=== PATIENT | female | born 1935 | race African-American/Black ===

== ENCOUNTER 2018-07-10 13:29 | Emergency (ER) | payer OTHER ==
--- NOTE | 2018-07-10 14:50 | RAD REPORT ---
EXAM DESCRIPTION: RAD - Chest Single View - 07/10/2018 2:37 pm CLINICAL HISTORY: CONGESTION Chest pain. COMPARISON: Chest Single View dated 10/19/2016; CHEST SINGLE VIEW dated 11/25/2012; CHEST PA AND LAT 2 VIEW dated 03/19/2011; CHEST PA AND LAT 2 VIEW dated 07/24/2005 FINDINGS: Portable technique limits examination quality. Mild COPD is noted. Chronic elevation of left hemidiaphragm is noted, unchanged. Mild mass effect on the the cardiomediastinal structures to the right is again seen. The heart is normal in size. No disp laced fractures. IMPRESSION: No acute intrathoracic process suspected.
[2018-07-10 15:18] LABS: Absolute Lymphocytes (CBC) 1.1 K/uL (0.7-4.9); Absolute Monocytes 0.8 K/uL (0.1-1.3); Absolute Neutrophil 3.3 K/uL (1.8-8.0); Basophils % 0.3 % (0-1.3); Eosinophils % 3.2 % (0-4.4); Hematocrit 39.4 % (36.0-45.0); Lymphocytes % 20.5 % (15.3-44.8); Monocytes % 14.4 % (3.3-12.3); RBC Red Blood Cell Count 4.39 M/uL (3.86-4.86)
[2018-07-10] MEDS ORDERED: AZITHROMYCIN 250 MG TAB ONE (15:21)
[2018-07-10] MEDS ORDERED: NA CHLORIDE 0.9% 1,000 ML ONE (15:22)
[2018-07-10] MEDS ORDERED: CEFTRIAXONE/SWI 1gm 1 GM/10 ML SYR ONE (15:22)
[2018-07-10] MEDS ORDERED: KETOROLAC 30 MG/ML INJ ONE (15:22)
[2018-07-10 15:36] LABS: BUN Blood Urea Nitrogen 7 mg/dL (7-18); Bicarbonate 34 mmol/L (21-32); Glucose Level 119 mg/dL (74-106); NT PRO-BNP 141 pg/mL (<450); Potassium 3.9 mmol/L (3.5-5.1); Sodium Level 138 mmol/L (136-145); Troponin (Emerg Dept Use Only) < 0.02 ng/mL (0.0-0.045)
--- NOTE | 2018-07-10 16:04 | EDPHYS ---
Physician Documentation [facility] Name: Patito Bell Age: 82 yrs Sex: Female : 1935 Arrival Date: 07/10/2018 Time: 13:31 Bed 16 Private MD: Maldonado Childress V ED Physician Ashleigh Iglesias HPI: 07/10 14:02 This 82 yrs old Black Female presents to ER via Wheelchair with complaints of Passed ma2 Out Prior To Arrival. 14:02 here with cough sob x 1 day intermittent moderate has had this before, had episode of ma2 lightheadedness with the cough however no chest pain or hx of dvt . Historical: - Allergies: 13:45 NKA; sv - PMHx: 13:45 Hyperlipidemia; Hypertension; RLE DVT; sv - PSHx: 13:45 Hysterectomy; Thyroidectomy; right knee; sv - Immunization history:: Adult Immunizations up to date. - Social history:: Patient/guardian denies using alcohol, street drugs, The patient lives with family, with spouse, Smoking status: Patient/guardian denies using tobacco. - Family history:: not pertinent. - Ebola Screening: : Patient denies travel to an Ebola-affected area in the 21 days before illness onset. ROS: 14:02 Constitutional: Negative for fever, chills, and weight loss, Cardiovascular: Negative ma2 for chest pain, palpitations, and edema, Abdomen/GI: Negative for abdominal pain, nausea, diarrhea, and constipation, Back: Negative for injury and pain. 14:02 Respiratory: Positive for cough, Negative for dyspnea on exertion, orthopnea, shortness of breath, wheezing. Exam: 14:02 Constitutional: This is a well developed, well nourished patient who is awake, alert, ma2 and in no acute distress. Head/Face: Normocephalic, atraumatic. Chest/axilla: Normal chest wall appearance and motion. Nontender with no deformity. No lesions are appreciated. Cardiovascular: Regular rate and rhythm with a normal S1 and S2. No gallops, murmurs, or rubs. Normal PMI, no JVD. No pulse deficits. Respiratory: Lungs have equal breath sounds bilaterally, clear to auscultation and percussion. No rales, rhonchi or wheezes noted. No increased work of breathing, no retractions or nasal flaring. Abdomen/GI: Soft, non-tender, with normal bowel sounds. No distension or tympany. No guarding or rebound. No evidence of tenderness throughout. MS/ Extremity: Pulses equal, no cyanosis. Neurovascular intact. Full, normal range of motion. Neuro: Awake and alert, GCS 15, oriented to person, place, time, and situation. Cranial nerves II-XII grossly intact. Motor strength 5/5 in all extremities. Sensory grossly intact. Cerebellar exam normal. Normal gait. Vital Signs: 13:45 BP 101 / 69; Pulse 57; Resp 16; Temp 97.7; Pulse Ox 99% ; Weight 47.63 kg; Height 5 ft. sv 0 in. (152.40 cm); Pain 4/10; 14:53 BP 106 / 72; Pulse 55; Resp 15; Pulse Ox 100% on R/A; aj1 15:21 BP 99 / 55; Pulse 58; Resp 14; Pulse Ox 98% on R/A; aj1 16:11 BP 101 / 54; Pulse 62; Resp 16; Pulse Ox 99% on R/A; aj1 13:45 Body Mass Index 20.51 (47.63 kg, 152.40 cm) sv MDM: 14:00 Patient medically screened. ma2 14:02 Differential Diagnosis: vasovagal episode, cap vs bronchitis, ekg done and no ischemic ma2 changed no long qt or signs of hocm or brugada, or right heart strain . 15:12 Differential Diagnosis: low risk syncope per [place] . ma2 16:03 Data reviewed: vital signs, nurses notes, lab test result(s), radiologic studies. ma2 Counseling: I had a detailed discussion with the patient and/or guardian regarding: the historical points, exam findings, and any diagnostic results supporting the discharge/admit diagnosis, the presence of at least one elevated blood pressure reading (>120/80) during this emergency department visit. Response to treatment: the patient's symptoms have markedly improved after treatment. 07/10 14:02 Order name: BMP [facility] 07/10 14:02 Order name: CBC with Diff [facility] 07/10 14:02 Order name: Troponin (emerg Dept Use Only) [facility] 07/10 14:02 Order name: D-Dimer nj07/10 14:02 Order name: BNP [facility] 07/10 14:02 Order name: Influenza Screen (a \T\ B) [facility] 07/10 14:02 Order name: XRAY CXR (1 view) [facility] 07/10 14:52 Order name: RAD; Complete Time: 15:11 [facility] 07/10 15:29 Order name: CBC with Automated Diff; Complete Time: 15:31 EDMS 07/10 15:29 Order name: D-Dimer; Complete Time: 15:31 [facility] 07/10 15:36 Order name: Basic Metabolic Panel; Complete Time: 15:59 EDMS 07/10 15:36 Order name: Troponin (Emerg Dept Use Only); Complete Time: 15:59 EDMS 07/10 15:36 Order name: NT PRO-BNP; Complete Time: 15:59 [facility] 07/10 16:04 Order name: Influenza Screen (A 07/10 13:46 Order name: EKG; Complete Time: 13:46 sv 07/10 13:46 Order name: EKG - Nurse/Tech; Complete Time: 13:57 sv 07/10 14:02 Order name: Cardiac monitoring; Complete Time: 14:49 [facility] 07/10 14:02 Order name: IV Saline Lock; Complete Time: 15:20 [facility] 07/10 14:02 Order name: Labs collected and sent; Complete Time: 15:20 [facility] 07/10 14:02 Order name: O2 Per Protocol; Complete Time: 14:50 [facility] 07/10 14:02 Order name: O2 Sat Monitoring; Complete Time: 14:50 [facility] Administered Medications: 15:19 Drug: NS 0.9% 1000 ml Route: IV; Rate: 1 bolus; Site: right antecubital; aj1 16:15 Follow up: IV Status: Completed infusion; IV Intake: 1000ml aj1 15:19 Drug: TORadol 30 mg Route: IVP; Site: right antecubital; aj1 16:15 Follow up: Response: No adverse reaction aj1 16:15 Follow up: Response: No adverse reaction aj1 15:20 Drug: Rocephin 1 grams Route: IV; Rate: calculated rate; Site: right antecubital; aj1 15:22 Follow up: IV Status: Completed infusion; IV Intake: 10ml aj1 15:20 Drug: AZITHromycin 500 mg Route: PO; aj1 16:15 Follow up: Response: No adverse reaction aj1 Disposition: 07/10/18 16:03 Discharged to Home. Impression: Bronchitis, not specified as acute or chronic. - Condition is Stable. - Discharge Instructions: Acute Bronchitis, Adult. - Prescriptions for Tylenol- Codeine #3 300-30 mg Oral Tablet - take 2 tablet by ORAL route every 6 hours As needed; 30 tablet. Zithromax Z- Jun 250 mg Oral Tablet - take 1 tablet by ORAL route as directed for 5 days Day 1 - take two (2) tablets one time. Day 2, 3, 4 , 5 take one (1) tablet once daily.; 6 tablet. Medrol (Jun) 4 mg Oral Tablets, Dose Pack - take 1 tablet by ORAL route as directed - follow package instructions; 1 packet. - Medication Reconciliation Form, Thank You Letter, Antibiotic Education, Prescription Opioid Use form. - Follow up: Private Physician; When: Tomorrow; Reason: Continuance of care. Signatures: Dispatcher [employer] EDIdalmis Reddy RN RN aj1 Sandra Ballard RN RN Ashleigh Iglesias MD MD ma2 Corrections: (The following items were deleted from the chart) 16:28 16:03 07/10/2018 16:03 Discharged to Home. Impression: Bronchitis, not specified as aj1 acute or chronic. Condition is Stable. Forms are Medication Reconciliation Form, Thank You Letter, Antibiotic Education, Prescription Opioid Use. Follow up: Private Physician; When: Tomorrow; Reason: Continuance of care. ma2
--- NOTE | 2018-07-10 16:04 | ER ---
Nurse's Notes [facility] Name: Patito Bell Age: 82 yrs Sex: Female : 1935 Arrival Date: 07/10/2018 Time: 13:31 Bed 16 Private MD: Maldonado Childress V Diagnosis: Bronchitis, not specified as acute or chronic Presentation: 07/10 13:40 Presenting complaint: Patient states: abd pain, dizziness, diarrhea, back pain, sv syncopal episode while on the toilet. Son reports when he came to get her she was sitting on her bed. Transition of care: patient was not received from another setting of care. Onset of symptoms was July 10, 2018. Care prior to arrival: None. 13:40 Method Of Arrival: Wheelchair sv 13:40 Acuity: GLENNA 3 sv 16:24 Risk Assessment: Do you want to hurt yourself or someone else? Patient reports no aj1 desire to harm self or others. 16:25 Initial Sepsis Screen: Does the patient meet any 2 criteria? No. Patient's initial aj1 sepsis screen is negative. Does the patient have a suspected source of infection? Yes: Productive cough/pneumonia. Triage Assessment: 13:46 General: Appears in no apparent distress. uncomfortable, Behavior is calm, cooperative, sv appropriate for age. Neuro: Level of Consciousness is awake, alert, obeys commands, Oriented to person, place, time, situation, Moves all extremities. Full function Gait is steady, Reports a syncopal episode. Respiratory: Respiratory effort is even, unlabored, Respiratory pattern is regular, symmetrical. Historical: - Allergies: 13:45 NKA; sv - PMHx: 13:45 Hyperlipidemia; Hypertension; RLE DVT; sv - PSHx: 13:45 Hysterectomy; Thyroidectomy; right knee; sv - Immunization history:: Adult Immunizations up to date. - Social history:: Patient/guardian denies using alcohol, street drugs, The patient lives with family, with spouse, Smoking status: Patient/guardian denies using tobacco. - Family history:: not pertinent. - Ebola Screening: : Patient denies travel to an Ebola-affected area in the 21 days before illness onset. Screenin:00 Abuse screen: Denies threats or abuse. Denies injuries from another. Nutritional aj1 screening: No deficits noted. Tuberculosis screening: No symptoms or risk factors identified. 16:25 Fall Risk None identified. aj1 Assessment: 14:00 General: Appears in no apparent distress. comfortable, Behavior is calm, cooperative, aj1 appropriate for age. Pain: Complains of pain in back and abdomen Pain does not radiate. Pain currently is 4 out of 10 on a pain scale. Neuro: Level of Consciousness is awake, alert, obeys commands, Oriented to person, place, time, situation, Bag Valver are equal bilaterally Moves all extremities. Full function Speech is normal, Facial symmetry appears normal, Reports dizziness, a syncopal episode. Cardiovascular: Patient's skin is warm and dry. Rhythm is sinus bradycardia. Respiratory: Reports shortness of breath cough that is persistent Airway is patent Respiratory effort is even, unlabored, Respiratory pattern is regular, symmetrical. GI: Abdomen is flat, non-distended, Reports diarrhea. : No signs and/or symptoms were reported regarding the genitourinary system. EENT: No signs and/or symptoms were reported regarding the EENT system. Derm: No signs and/or symptoms reported regarding the dermatologic system. Skin is pink, warm \T\ dry. normal. Musculoskeletal: No signs and/or symptoms reported regarding the musculoskeletal system. Circulation, motion, and sensation intact. 14:54 Reassessment: Patient appears in no apparent distress at this time. No changes from aj1 previously documented assessment. Patient and/or family updated on plan of care and expected duration. Pain level reassessed. Patient is alert, oriented x 3, equal unlabored respirations, skin warm/dry/pink. 15:20 Reassessment: Patient appears in no apparent distress at this time. No changes from aj1 previously documented assessment. Patient and/or family updated on plan of care and expected duration. Pain level reassessed. Patient is alert, oriented x 3, equal unlabored respirations, skin warm/dry/pink. 16:11 Reassessment: Patient appears in no apparent distress at this time. No changes from aj1 previously documented assessment. Patient and/or family updated on plan of care and expected duration. Pain level reassessed. Patient is alert, oriented x 3, equal unlabored respirations, skin warm/dry/pink. Vital Signs: 13:45 BP 101 / 69; Pulse 57; Resp 16; Temp 97.7; Pulse Ox 99% ; Weight 47.63 kg; Height 5 ft. sv 0 in. (152.40 cm); Pain 4/10; 14:53 BP 106 / 72; Pulse 55; Resp 15; Pulse Ox 100% on R/A; aj1 15:21 BP 99 / 55; Pulse 58; Resp 14; Pulse Ox 98% on R/A; aj1 16:11 BP 101 / 54; Pulse 62; Resp 16; Pulse Ox 99% on R/A; aj1 13:45 Body Mass Index 20.51 (47.63 kg, 152.40 cm) sv ED Course: 13:31 Patient arrived in ED. as 13:31 Maldonado Childress MD is Private Physician. as 13:44 Triage completed. sv 13:46 Arm band placed on. sv 13:54 EKG done, by analytical lab technician. reviewed by Ashleigh Iglesias MD. sm3 13:55 Idalmis Kimble, BRANNON is Primary Nurse. aj1 14:00 Ashleigh Iglesias MD is Attending Physician. ma2 14:00 Patient has correct armband on for positive identification. Bed in low position. Call aj1 light in reach. Side rails up X 1. cardiac monitor on. Pulse ox on. NIBP on. 14:00 No provider procedures requiring assistance completed. aj1 14:35 Missed attempt(s): 22 gauge in left antecubital area. Bleeding controlled, band aid aj1 applied, catheter tip intact. 14:40 Missed attempt(s): 22 gauge in left hand. Bleeding controlled, band aid applied, aj1 catheter tip intact. 16:24 IV discontinued, intact, bleeding controlled, No redness/swelling at site. Pressure aj1 dressing applied. Administered Medications: 15:19 Drug: NS 0.9% 1000 ml Route: IV; Rate: 1 bolus; Site: right antecubital; aj1 16:15 Follow up: IV Status: Completed infusion; IV Intake: 1000ml aj1 15:19 Drug: TORadol 30 mg Route: IVP; Site: right antecubital; aj1 16:15 Follow up: Response: No adverse reaction aj1 16:15 Follow up: Response: No adverse reaction aj1 15:20 Drug: Rocephin 1 grams Route: IV; Rate: calculated rate; Site: right antecubital; aj1 15:22 Follow up: IV Status: Completed infusion; IV Intake: 10ml [facility] 15:20 Drug: AZITHromycin 500 mg Route: PO; 1 16:15 Follow up: Response: No adverse reaction aj1 Intake: 15:22 IV: 10ml; Total: 10ml. aj1 16:15 IV: 1000ml; Total: 1010ml. aj1 Outcome: 16:03 Discharge ordered by . ma2 16:25 Discharged to home via wheelchair, with family. aj1 16:25 Condition: good 16:25 Discharge instructions given to patient, family, Instructed on discharge instructions, follow up and referral plans. no drinking with medication, no driving heavy equipment, medication usage, Demonstrated understanding of instructions, follow-up care, medications, Prescriptions given X 3. 16:28 Patient left the ED. [facility] Signatures: Idalmis Kimble RN RN aj1 Verde, Stephanie, RN RN sv Martinez, Amelia as Alzahri, Mohammad, MD MD ma2 Evangelina Novak 3 Corrections: (The following items were deleted from the chart) 13:46 13:40 Presenting complaint: Patient states: abd pain, dizziness, diarrhea, back pain, sv syncopal episode while on the toilet. sv
[2018-07-10 16:35] VITALS: TEMP 97.7
[2018-07-10 16:39] VITALS: BP 101/54; O2SAT 99
--- NOTE | 2018-07-10 21:21 | EKG ---
Test Date: 2018-07-10 Test Time: 13:45:51 Certified Athletic Trainer: REBEKAH MEASUREMENT RESULTS: Intervals: Rate: 58 WV: 166 QRSD: 78 QT: 478 QTc: 469 Avella: P: 66 WV: 166 QRS: 63 T: 66 INTERPRETIVE STATEMENTS: Sinus bradycardia Otherwise normal ECG Compared to ECG 10/19/2016 12:06:08 No significant changes Electronically Signed On 07-10-18 21:20:18 GLASS FURNACE TENDER by Uriel Goldsmith
== END 2018-07-10 16:28 | disposition home or self-care (01) ==
LOC: ER 13:29
DX: J40 Bronchitis, not specified as acute or chronic (principal); I10 Essential (primary) hypertension
CPT/HCPCS: 36415; 71045; 80048; 83880; 84484; 85025; 85379; 87804 ×2; 93005; 96361; 96374; 96375; 99284; J0696; J7030

== ENCOUNTER 2020-11-14 18:09 | Emergency (ER) | payer OTHER ==
[2020-11-14] MEDS ORDERED: NA CHLORIDE 0.9% 500 ML ONE (21:36)
[2020-11-14 21:45] LABS: Absolute Lymphocytes (CBC) 1.6 K/uL (0.7-4.9); Basophils % 0.5 % (0-1.3); Hematocrit 38.7 % (36.0-45.0); Lymphocytes % 24.5 % (15.3-44.8); MPV 8.8 fL (7.6-11.3); RBC Red Blood Cell Count 4.34 M/uL (3.86-4.86)
[2020-11-14 22:23] LABS: ALT/SGPT 34 U/L (12-78); AST/SGOT 24 U/L (15-37); Albumin 3.2 g/dL (3.4-5.0); Alkaline Phosphatase 43 U/L (45-117); BUN Blood Urea Nitrogen 14 mg/dL (7-18); Bicarbonate 32 mmol/L (21-32); Bilirubin Direct < 0.1 mg/dL (0-0.2); Bilirubin Total 0.4 mg/dL (0.2-1.0); Glucose Level 101 mg/dL (74-106); Lipase 250 U/L (73-393); Potassium 3.6 mmol/L (3.5-5.1); Protein, Total 6.7 g/dL (6.4-8.2); Sodium Level 143 mmol/L (136-145)
[2020-11-14] MEDS ORDERED: TRAMADOL HCL 50 MG TAB ONE (23:26)
[2020-11-15 00:11] LABS: Urine Blood Trace-intact (Negative); Urine Glucose Negative (Negative); Urine Protein Negative (Negative); Urine Specific Gravity 1.015 (1.005-1.030); Urine pH 8.5 (5.0-7.0)
--- NOTE | 2020-11-15 00:32 | EDPHYS ---
Physician Documentation [facility] Name: Patito Bell Age: 85 yrs Sex: Female : 1935 Arrival Date: 11/14/2020 Time: 18:14 Bed 3 Private MD: ED Physician Timothy Andrews HPI: 11/14 21:06 This 85 yrs old Black Female presents to ER via Wheelchair with complaints of Shoulder rn Pain, diarrhea. 21:06 The patient or guardian complains of pain, that is chronic. right shoulder. Onset: The rn symptoms/episode began/occurred "months ago". Modifying factors: the symptoms are alleviated by remaining still, The symptoms are aggravated by movement, rotation of arm. Associated signs and symptoms:. 21:07 Severity of symptoms: At their worst the symptoms were moderate, in the emergency rn department the symptoms are unchanged. The patient has experienced similar episodes in the past. The patient has been recently seen by a physician:. Reports right shoulder pain for "months", no injury, had xray by pcp last week but no results. Also reports feeling dizzy and lightheaded, generalized weakness, diarrhea, that began today. Son states has had months of shoulder pain, no injury, thinks is from using right walking cane instead of walker. Son also not sure if she is really feeling bad, took to outside of room and said she tends to exaggerate at times. . Historical: - Allergies: 19:12 NKA; jl7 - PMHx: 19:12 Hyperlipidemia; Hypertension; RLE DVT; jl7 - PSHx: 19:12 Hysterectomy; Thyroidectomy; right knee; jl7 - Immunization history:: Adult Immunizations unknown. - Social history:: Smoking status: Patient denies any tobacco usage or history of. - Family history:: not pertinent. - Hospitalizations: : No recent hospitalization is reported. ROS: 21:07 Constitutional: Negative for fever, chills, and weight loss, Eyes: Negative for injury, rn pain, redness, and discharge, ENT: Negative for injury, pain, and discharge, Neck: Negative for injury, pain, and swelling, Cardiovascular: Negative for chest pain, palpitations, and edema, Respiratory: Negative for shortness of breath, cough, wheezing, and pleuritic chest pain, Abdomen/GI: Negative for abdominal pain, nausea, vomiting, diarrhea, and constipation, Back: Negative for injury and pain, : Negative for injury, bleeding, discharge, and swelling, MS/Extremity: + right shoulder pain Skin: Negative for injury, rash, and discoloration, Neuro: Negative for headache, numbness, tingling, and seizure. Exam: 21:07 Constitutional: Thin female, no acute distress Head/Face: Normocephalic, atraumatic. rn Eyes: Periorbital areas with no swelling, redness, or edema. ENT: dry MM Cardiovascular: Regular rate and rhythm. No pulse deficits. Respiratory: No increased work of breathing, no retractions or nasal flaring. Abdomen/GI: Soft, non-tender Skin: Warm, dry MS/ Extremity: Pulses equal, no cyanosis. Neurovascular intact. + painful ROM right shoulder, no deformity Neuro: Awake and alert, GCS 15, oriented to person, place, time, and situation. Cranial nerves II-XII grossly intact. Motor strength 4/5 in all extremities. Sensory grossly intact. Vital Signs: 19:09 BP 186 / 82; Pulse 66; Resp 15; Temp 97.2; Pulse Ox 98% ; Weight 44.91 kg; Pain 10/10; jl7 21:49 BP 195 / 79; Pulse 65; Resp 16 S; Pulse Ox 98% on R/A; ad5 22:30 BP 169 / 72; Pulse 58; Resp 16; Pulse Ox 98% on R/A; jb4 23:30 BP 177 / 81; Pulse 71; Resp 16; Pulse Ox 96% on R/A; jb4 11/15 00:15 BP 175 / 90; Pulse 60; Resp 18; Pulse Ox 96% on R/A; jb4 MDM: 11/14 19:32 Patient medically screened. rn 11/15 00:31 Differential diagnosis: DJD, tendonitis. Data reviewed: vital signs, nurses notes, labor employment associate test result(s), radiologic studies, CT scan, and as a result, I will discharge patient. Counseling: I had a detailed discussion with the patient and/or guardian regarding: the historical points, exam findings, and any diagnostic results supporting the discharge/admit diagnosis, lab results, radiology results, the need for outpatient follow up, to return to the emergency department if symptoms worsen or persist or if there are any questions or concerns that arise at home. Response to treatment: the patient's symptoms have mildly improved after treatment, and as a result, I will discharge patient. Special discussion: I discussed with the patient/guardian in detail that at this point there is no indication for admission to the hospital. It is understood, however, that if the symptoms persist or worsen the patient needs to return immediately for re-evaluation. 11/14 21:06 Order name: Basic Metabolic Panel; Complete Time: 22:28 rn 11/14 21:06 Order name: CBC with Diff; Complete Time: 21:51 rn 11/14 21:06 Order name: Hepatic Function; Complete Time: 22:28 rn 11/14 21:06 Order name: Lipase; Complete Time: 22:28 rn 11/14 21:06 Order name: Urine Microscopic Only rn 11/14 21:06 Order name: XRAY Shoulder RIGHT 2 view rn 11/14 21:06 Order name: CT Abd/Pelvis - IV Contrast Only rn 11/14 22:21 Order name: SARS-COV-2 RT PCR; Complete Time: 22:28 EDMS 11/15 00:11 Order name: Urine Dipstick-Ancillary; Complete Time: 00:31 EDMS 11/14 21:06 Order name: IV Saline Lock; Complete Time: 21:45 rn 11/14 21:06 Order name: Labs collected and sent; Complete Time: 21:45 rn 11/14 21:06 Order name: Urine Dipstick-Ancillary (obtain specimen); Complete Time: 00:16 rn 11/14 21:06 Order name: EKG; Complete Time: 21:06 rn 11/14 21:06 Order name: EKG - Nurse/Tech; Complete Time: 22:12 rn Administered Medications: 11/14 21:35 Drug: NS 0.9% 500 ml Route: IV; Rate: bolus; Site: left antecubital; ad5 22:00 Follow up: Response: No adverse reaction; IV Status: Completed infusion; IV Intake: jb4 500ml 23:19 Drug: traMADol 50 mg Route: PO; ad5 11/15 00:16 Follow up: Response: No adverse reaction; Marked relief of symptoms; Pain is decreased; jb4 RASS: Alert and Calm (0) 00:45 Drug: Motrin (ibuprofen) 600 mg Route: PO; jb4 01:03 Follow up: Response: Medication administered at discharge. jb4 01:01 Drug: Rocephin (cefTRIAXone) 1 grams Route: IV; Rate: calculated rate; Site: left jb4 antecubital; 01:03 Follow up: Response: No adverse reaction; Medication administered at discharge.; IV jb4 Status: Completed infusion; IV Intake: 10ml Disposition: 11/15/20 00:32 Discharged to Home. Impression: Dizziness and giddiness, Pain in right shoulder, Osteoarthritis, unspecified site. - Condition is Stable. - Discharge Instructions: Arthritis, Dizziness, Urinary Tract Infection, Adult. - Prescriptions for cefpodoxime 100 mg Oral Tablet - take 1 tablet by ORAL route every 12 hours for 10 days take with food; 20 tablet. - Medication Reconciliation Form, Thank You Letter, Antibiotic Education, Prescription Opioid Use, Family Work Release form. - Follow up: Private Physician; When: As needed; Reason: Recheck today's complaints, Re-evaluation by your physician. - Problem is an ongoing problem. - Symptoms have improved. Signatures: Dispatcher [employer] [facility] Timothy Andrews MD MD rn Bryson, James, RN RN jb4 Moriah Rodríguez RN RN jl7 Johnson Tee ad5 Corrections: (The following items were deleted from the chart) 11/14 21:41 21:07 CORONAVIRUS+MR.LAB.BRZ ordered. [facility] 11/15 01:16 00:32 11/15/2020 00:32 Discharged to Home. Impression: Dizziness and giddiness; Pain in jb4 right shoulder; Osteoarthritis, unspecified site. Condition is Stable. Forms are Medication Reconciliation Form, Thank You Letter, Antibiotic Education, Prescription Opioid Use. Follow up: Private Physician; When: As needed; Reason: Recheck today's complaints, Re-evaluation by your physician. Problem is an ongoing problem. Symptoms have improved. rn
--- NOTE | 2020-11-15 00:32 | ER ---
Nurse's Notes [facility] Name: Patito Bell Age: 85 yrs Sex: Female : 1935 Arrival Date: 11/14/2020 Time: 18:14 Bed 3 Private MD: Diagnosis: Dizziness and giddiness;Pain in right shoulder;Osteoarthritis, unspecified site Presentation: 11/14 19:09 Chief complaint: Patient states: right shoulder pain x several months, also reports jl7 feeling dizzy since Friday, diarrhea since this morning. Coronavirus screen: Client denies travel out of the [place] in the last 14 days. At this time, the client does not indicate any symptoms associated with coronavirus-19. Ebola Screen: No symptoms or risks identified at this time. Initial Sepsis Screen: Does the patient meet any 2 criteria? No. Patient's initial sepsis screen is negative. Does the patient have a suspected source of infection? No. Patient's initial sepsis screen is negative. Risk Assessment: Do you want to hurt yourself or someone else? Patient reports no desire to harm self or others. Onset of symptoms is unknown. 19:09 Method Of Arrival: Wheelchair jl7 19:09 Acuity: GLENNA 2 jl7 Historical: - Allergies: 19:12 NKA; jl7 - PMHx: 19:12 Hyperlipidemia; Hypertension; RLE DVT; jl7 - PSHx: 19:12 Hysterectomy; Thyroidectomy; right knee; jl7 - Immunization history:: Adult Immunizations unknown. - Social history:: Smoking status: Patient denies any tobacco usage or history of. - Family history:: not pertinent. - Hospitalizations: : No recent hospitalization is reported. Screenin:48 Abuse screen: Denies threats or abuse. Denies injuries from another. Nutritional ad5 screening: No deficits noted. Tuberculosis screening: No symptoms or risk factors identified. Fall Risk None identified. Assessment: 21:45 General: Appears in no apparent distress. Behavior is calm, cooperative, appropriate ad5 for age. Pain: Complains of pain in right scapular area. Neuro: Level of Consciousness is awake, alert, obeys commands, Oriented to person, place, time, situation, Appropriate for age [employer] [employer] are equal bilaterally Moves all extremities. Weakness Speech is normal, Facial symmetry appears normal, Pupils are PERRLA, Intact Reports dizziness. Cardiovascular: No deficits noted. Heart tones present Capillary refill < 3 seconds JVD is absent Patient's skin is warm and dry. Rhythm is regular. Respiratory: Reports shortness of breath Airway is patent Trachea midline Respiratory effort is even, unlabored, Respiratory pattern is regular, symmetrical. GI: No deficits noted. No signs and/or symptoms were reported involving the gastrointestinal system. : No deficits noted. No signs and/or symptoms were reported regarding the genitourinary system. EENT: No deficits noted. No signs and/or symptoms were reported regarding the EENT system. Derm: No deficits noted. Skin is intact, Skin is dry, Skin is normal, Skin temperature is warm. Musculoskeletal: Circulation, motion, and sensation intact. Capillary refill < 3 seconds, Range of motion: intact in all extremities, Reports pain in right scapular area. 22:33 Reassessment: Patient appears in no apparent distress at this time. Patient and/or jb4 family updated on plan of care and expected duration. Pain level reassessed. Patient is alert, oriented x 3, equal unlabored respirations, skin warm/dry/pink. PT being taken to CT. 23:30 Reassessment: Patient appears in no apparent distress at this time. Patient and/or jb4 family updated on plan of care and expected duration. Pain level reassessed. Patient is alert, oriented x 3, equal unlabored respirations, skin warm/dry/pink. 11/15 00:30 Reassessment: Patient appears in no apparent distress at this time. Patient and/or jb4 family updated on plan of care and expected duration. Pain level reassessed. Patient is alert, oriented x 3, equal unlabored respirations, skin warm/dry/pink. Vital Signs: 11/14 19:09 BP 186 / 82; Pulse 66; Resp 15; Temp 97.2; Pulse Ox 98% ; Weight 44.91 kg; Pain 10/10; jl7 21:49 BP 195 / 79; Pulse 65; Resp 16 S; Pulse Ox 98% on R/A; ad5 22:30 BP 169 / 72; Pulse 58; Resp 16; Pulse Ox 98% on R/A; jb4 23:30 BP 177 / 81; Pulse 71; Resp 16; Pulse Ox 96% on R/A; jb4 11/15 00:15 BP 175 / 90; Pulse 60; Resp 18; Pulse Ox 96% on R/A; jb4 ED Course: 11/14 18:14 Patient arrived in ED. ds1 19:09 Arm band placed on right wrist. Patient placed in waiting room, Patient notified of jl7 wait time. 19:11 Triage completed. jl7 19:32 Timothy Andrews MD is Attending Physician. rn 20:56 Timothy Andrews MD is Attending Physician. rn 21:15 Johnson Tee is Primary Nurse. ad5 21:30 Initial lab(s) drawn, by me, sent to lab. COVID swab sent to lab. Inserted saline lock: ad5 22 gauge in left antecubital area, using aseptic technique. 21:42 XRAY Shoulder RIGHT 2 view In Process Unspecified. EDMS 21:47 No provider procedures requiring assistance completed. ad5 21:48 Patient has correct armband on for positive identification. Bed in low position. Call ad5 light in reach. Side rails up X2. site monitor on. Pulse ox on. NIBP on. Door closed. Noise minimized. Warm blanket given. 21:48 Head of bed lowered. ad5 22:14 Primary Nurse role handed off by Johnson Tee jb4 22:14 Jarrett Whelan, RN is Primary Nurse. jb4 22:44 Inserted saline lock: 20 gauge in right forearm, using aseptic technique. jb4 23:10 CT Abd/Pelvis - IV Contrast Only In Process Unspecified. EDMS 06/ 01:03 IV discontinued, intact, bleeding controlled, No redness/swelling at site. Pressure jb4 dressing applied. Administered Medications: 11/14 21:35 Drug: NS 0.9% 500 ml Route: IV; Rate: bolus; Site: left antecubital; ad5 22:00 Follow up: Response: No adverse reaction; IV Status: Completed infusion; IV Intake: jb4 500ml 23:19 Drug: traMADol 50 mg Route: PO; ad5 11/15 00:16 Follow up: Response: No adverse reaction; Marked relief of symptoms; Pain is decreased; jb4 RASS: Alert and Calm (0) 00:45 Drug: Motrin (ibuprofen) 600 mg Route: PO; jb4 01:03 Follow up: Response: Medication administered at discharge. jb4 01:01 Drug: Rocephin (cefTRIAXone) 1 grams Route: IV; Rate: calculated rate; Site: left jb4 antecubital; 01:03 Follow up: Response: No adverse reaction; Medication administered at discharge.; IV jb4 Status: Completed infusion; IV Intake: 10ml Intake: 11/14 22:00 IV: 500ml; Total: 500ml. jb4 06 01:03 IV: 10ml; Total: 510ml. jb4 Outcome: 00:32 Discharge ordered by . rn 01:16 Discharged to home via wheelchair, with family. jb4 01:16 Condition: stable 01:16 Discharge instructions given to patient, family, Instructed on discharge instructions, follow up and referral plans. medication usage, Demonstrated understanding of instructions, follow-up care, medications, Prescriptions given X 1. 01:16 Patient left the ED. jb4 Signatures: Dispatcher [employer] EDIL Sparkle Manzano ds1 Timothy Andrews MD MD rn Bryson, James RN BRANNON [email or web address] Moriah Rodríguez RN RN jl7 Johnson Tee Corrections: (The following items were deleted from the chart) 11/14 19:13 19:09 Chief complaint: Patient states: right shoulder pain x several monoths jl7 jl7 19:13 19:09 Acuity: GLENNA 3 jl7 jl7
[2020-11-15] MEDS ORDERED: CEFTRIAXONE/SWI 1gm 1 GM/10 ML SYR ONE (01:09)
[2020-11-15] MEDS ORDERED: IBUPROFEN 200 MG TAB PO ONE (01:09)
[2020-11-15 01:38] VITALS: TEMP 97.2
[2020-11-15 01:43] VITALS: O2SAT 96
[2020-11-15 01:45] VITALS: BP 175/90
[2020-11-15 02:04] LABS: Urine Bacteria <20 /HPF (<20); Urine RBC <5 /HPF (NONE SEEN); Urine Urothelial Cells <5 /HPF (NONE SEEN)
--- NOTE | 2020-11-15 08:27 | RAD REPORT ---
EXAM DESCRIPTION: RAD - Shoulder Right 2 View - 11/14/2020 9:42 pm CLINICAL HISTORY: PAIN COMPARISON: No comparisons FINDINGS: Mild osteoarthritis affects the AC joint and glenohumeral joint. The bones are osteopenic. No acute fracture or dislocation seen.
--- NOTE | 2020-11-15 11:20 | RAD REPORT ---
EXAM DESCRIPTION: Abdomen Pelvis W Contrast RadLex: CT ABDOMEN PELVIS WITH IV CONTRAST CLINICAL HISTORY: Diarrhea;Abd pain. COMPARISON: CT of the chest from August 12, 2016. TECHNIQUE: CT of the abdomen and pelvis was performed following intravenous administration of iodina jane contrast. Arterial phase images through the abdomen, and portal venous phase images through the a bdomen and pelvis were obtained. Oral contrast was not administered. Axial, coronal, and sagittal sof t tissue window reconstructions were created and sent to PACS. This exam was performed according to our departmental dose-optimization program, which includes autom ated exposure control, adjustment of the mA and/or kV according to patient size and/or use of iterati ve reconstruction technique. FINDINGS: Thoracic: Elevation of the left hemidiaphragm, similar to prior. Hepatobiliary: Tiny right hepatic lobe hypodensity, possibly a cyst. No concerning hepatic lesion noin ntified. The hepatic and portal veins are patent. The gallbladder is surgically absent. No pathologic biliary ductal dilatation. Pancreas: Mildly prominent main pancreatic duct, measuring just over 0.3 cm in diameter, favored age- related. No parenchymal abnormality identified. Spleen: Unremarkable. Gastrointestinal: No evidence of bowel obstruction or perienteric inflammation. The appendix is not d efinitely visualized, but there are no pericecal inflammatory changes. Small to moderate amount of fe blaise material throughout the colon. Adrenals: No abnormality identified in either adrenal gland. Renal: Bilateral renal cortical thinning. Small simple inferior right renal cyst measures 1.3 cm. No concerning parenchymal abnormality in either kidney. No hydronephrosis or urolithiasis. Bladder/Reproductive: Unremarkable appearance of the distended urinary bladder by CT technique. Vascular/Lymphatics: No lymphadenopathy identified by CT size criteria. Mild to moderate atherosclero sis. The major visceral vessels are patent. Abdominal aorta is normal in caliber. Musculoskeletal: No concerning osseous lesion identified. Osteopenia. Mild spinal degenerative change s. Fluid / peritoneum: No significant free fluid. No free intraperitoneal air identified. IMPRESSION 1. No acute abnormality identified in the abdomen or pelvis by CT. 2. Small to moderate amount of fecal material throughout the colon. Electronically signed by: Gin Mackey MD 11/14/2020 11:29 PM CDT Due to temporary technical issues with the PACS/Fluency reporting system, reports are being signed by the in house radiologist without review as a courtesy to ensure prompt reporting. The interpreting r adiologist is fully responsible for the content of the report.
--- NOTE | 2020-11-15 11:55 | EKG ---
Test Date: 2020-11-14 Test Time: 22:08:46 Plastic Press Operator: DANICA MEASUREMENT RESULTS: Intervals: Rate: 50 HI: 188 QRSD: 80 QT: 470 QTc: 428 [place]: P: 65 HI: 188 QRS: 52 T: 42 INTERPRETIVE STATEMENTS: Sinus bradycardia with sinus arrhythmia Otherwise normal ECG Compared to ECG 07/10/2018 13:45:51 No significant changes Electronically Signed On 11-15-20 11:53:39 CDT by Uriel Goldsmith
== END 2020-11-15 01:16 | disposition home or self-care (01) ==
LOC: ER 18:09
DX: M19.011 Primary osteoarthritis, right shoulder (principal); I10 Essential (primary) hypertension; Z20.822 Contact with and (suspected) exposure to COVID-19
CPT/HCPCS: 93005; 87088; 85025; 87086; 80048; 36415; 80076; 83690; 74177; 73030; U0003; Q9967; J0696; J7040; 81003; 81015; 96374; 99284

== ENCOUNTER 2022-08-13 14:17 | Emergency (ER) | payer OTHER ==
[2022-08-13] MEDS ORDERED: MORPHINE 2 MG/ML SYR ONE (14:57)
[2022-08-13] MEDS ORDERED: ONDANSETRON 4 MG/2 ML VIAL ONE (14:57)
--- NOTE | 2022-08-13 15:14 | RAD REPORT ---
EXAM DESCRIPTION: CT - Head C Spine Cap Wo Con - 08/13/2022 2:55 pm CLINICAL HISTORY: Trauma, head and neck injury. Chest, abdomen and pelvis pain. fall, head injury neck pain, right sided pelvic pain COMPARISON: No comparisons TECHNIQUE: CT head without contrast. CT cervical spine without contrast with coronal and sagittal reformatted images. CT chest, abdomen and pelvis with coronal and sagittal reformatted images of the spine. All CT scans are performed using dose optimization technique as appropriate and may include automated exposure control or mA/KV adjustment according to patient size. FINDINGS: CT HEAD WITHOUT CONTRAST: No intracranial hemorrhage, hydrocephalus or extra-axial fluid collection. No acute large vascular te rritory infarct. Chronic small vessel ischemic changes. The paranasal sinuses and mastoids are clear. The calvarium is intact. CT CERVICAL SPINE WITHOUT CONTRAST: No fracture or subluxation. The prevertebral soft tissues are normal in thickness. CT CHEST, ABDOMEN, PELVIS: Thorax: Chest Wall: No abnormal mass Lungs: No acute abnormality. Elevated left hemidiaphragm with underlying atelectasis. Pleura: No effusions or pneumothorax. Angélica/Mediastinum: No lymphadenopathy. Aorta/Pulmonary Arteries: Unremarkable Heart: Normal size. Aortic valve calcifications. Coronary artery calcifications. Abdomen/Pelvis: Liver: No acute abnormality or suspicious lesions. Biliary: Cholecystectomy. Stomach: No significant focal abnormality. Duodenum: No significant focal abnormality. Pancreas: No significant abnormality. Spleen: No significant abnormality. Adrenal: No suspicious lesions. Kidney/ureter: No hydronephrosis. No renal calculi. Too small to characterize and/or benign appearing renal lesions are noted. Retroperitoneum: No retroperitoneal adenopathy. Vascular: No aneurysm. Atherosclerosis. Bowel: No significant focal abnormality. Peritoneum: No ascites or free air. Bladder: Grossly unremarkable. Reproductive: No adnexal masses. Bones: No acute fracture. Bridging osteophytes are present in the spine. Other: n/a IMPRESSION: Negative for acute traumatic findings.
[2022-08-13 15:20] LABS: Absolute Lymphocytes (CBC) 1.1 K/uL (0.7-4.9); Hematocrit 37.6 % (36.0-45.0); MCV 88.6 fL (80-100); MPV 8.1 fL (7.6-11.3); RBC Red Blood Cell Count 4.24 M/uL (3.86-4.86)
--- NOTE | 2022-08-13 15:32 | RAD REPORT ---
EXAM DESCRIPTION: RAD - Chest Single View - 08/13/2022 3:14 pm CLINICAL HISTORY: fall COMPARISON: Chest Single View dated 07/10/2018; Chest Single View dated 10/19/2016; CHEST SINGLE VIEW d ated 11/25/2012; CHEST PA AND LAT 2 VIEW dated 03/19/2011 FINDINGS: Lines: None. Lungs: Left hemidiaphragm elevation. There is underlying atelectasis. No other acute finding identifi ed. Pleural: No significant pleural effusions or pneumothorax. Cardiac: The heart size is within normal limits. Mediastinum: Within normal limits. Bones: No acute fractures. Other: None IMPRESSION: Elevated left hemidiaphragm which is chronic. No acute process identified.
[2022-08-13 15:37] LABS: Troponin High Sensitivity 5.6 pg/mL (<58.9)
--- NOTE | 2022-08-13 16:06 | RAD REPORT ---
EXAM DESCRIPTION: RAD - Femur Right - 08/13/2022 3:50 pm CLINICAL HISTORY: fall, pain COMPARISON: No comparisons FINDINGS/IMPRESSION: No acute fracture. No malalignment. Patellar spurring. Mediolateral compartment narrowing at the knee.
[2022-08-13] MEDS ORDERED: FENTANYL CITR 100 MCG/2 ML ONE (16:19)
--- NOTE | 2022-08-13 16:58 | ER ---
Nurse's Notes [facility] Name: Patito Bell Age: 86 yrs Sex: Female : 1935 Arrival Date: 08/13/2022 Time: 14:20 Bed 4 Private MD: Diagnosis: Strain of muscle, fascia and tendon of right hip Presentation: 08/13 14:39 Chief complaint: Patient states: she fell onto her dresser, hitting her hip and her ap3 leg. patient denies LOC or hitting her head. patient complains of right hip/leg pain. Coronavirus screen: At this time, the client does not indicate any symptoms associated with coronavirus-19. Ebola Screen: No symptoms or risks identified at this time. Initial Sepsis Screen: Does the patient meet any 2 criteria? No. Patient's initial sepsis screen is negative. Does the patient have a suspected source of infection? No. Patient's initial sepsis screen is negative. Risk Assessment: Do you want to hurt yourself or someone else? Patient reports no desire to harm self or others. Onset of symptoms was August 13, 2022 at 13:40. 14:39 Method Of Arrival: Wheelchair ap3 14:39 Acuity: GLENNA 3 ap3 Triage Assessment: 14:43 General: Appears uncomfortable, Behavior is restless. Pain: Complains of pain in right ap3 leg \T\ right hip. Neuro: Level of Consciousness is awake, alert, obeys commands, Oriented to person, place, time, situation. Cardiovascular: Patient's skin is warm and dry. Respiratory: Airway is patent Respiratory effort is even, unlabored, Respiratory pattern is regular, symmetrical. Historical: - Allergies: 14:40 No Known Allergies; ap3 - Home Meds: 14:40 Unable to obtain [Active]; ap3 - PMHx: 14:40 Hyperlipidemia; Hypertension; RLE DVT; ap3 - Immunization history:: Flu vaccine is not up to date. - Social history:: Smoking status: Patient denies any tobacco usage or history of. Screenin:44 Abuse screen: Denies threats or abuse. Nutritional screening: No deficits noted. ap3 Tuberculosis screening: No symptoms or risk factors identified. 15:13 [facility] ED Fall Risk Assessment (Adult) History of falling in the last 3 months, ll1 including since admission Yes- single mechanical fall (1 pt) Impaired Gait Yes (1 pt) Mobility Assist Device Used Yes (1 pt) Score/Fall Risk Level 3 or more points = High Risk Oriented to surroundings, Maintained a safe environment, Educated pt \T\ family on fall prevention, incl call for assistance when getting out of bed, Hourly rounding (assess needs \T\ fall precautionary measures) done, Used ambulatory aids as needed (educated on \T\ assisted with), Used gait belt as appropriate Utilized family, sitter, or virtual auto washer as indicated. Assessment: 15:13 Reassessment: No changes from previously documented assessment. Patient and/or family ll1 updated on plan of care and expected duration. Pain level reassessed. Patient is alert, oriented x 3, equal unlabored respirations, skin warm/dry/pink. 16:29 Reassessment: No changes from previously documented assessment. Patient and/or family ll1 updated on plan of care and expected duration. Pain level reassessed. Patient is alert, oriented x 3, equal unlabored respirations, skin warm/dry/pink. 17:09 Reassessment: No changes from previously documented assessment. Patient and/or family ll1 updated on plan of care and expected duration. Pain level reassessed. Patient is alert, oriented x 3, equal unlabored respirations, skin warm/dry/pink. Vital Signs: 14:39 BP 141 / 68; Pulse 58; Resp 21; Temp 98.2; Pulse Ox 98% ; ap3 15:14 Pulse 65; Resp 19; ll1 17:05 BP 107 / 57; Pulse 53; Resp 18; Pulse Ox 98% ; ll1 ED Course: 14:20 Patient arrived in ED. rg4 14:24 Enmanuel Licona PA is PHCP. jmm 14:24 Timothy Andrews MD is Attending Physician. jmm 14:40 Triage completed. ap3 14:44 Arm band placed on left wrist. ap3 14:44 Patient has correct armband on for positive identification. Adult w/ patient. ap3 14:47 Dennis Marin, BRANNON is Primary Nurse. ll1 14:56 CT Traumagram (Head C Spine CAP wo con) In Process Unspecified. EDMS 15:03 Missed attempt(s): 22 gauge in right forearm. Bleeding controlled, band aid applied, ll1 catheter tip intact. 15:05 Inserted saline lock: 24 gauge in right antecubital area, using aseptic technique. ll1 Blood collected. 15:13 No provider procedures requiring assistance completed. ll1 15:15 XRAY Chest (1 view) In Process Unspecified. EDMS 15:52 Femur Right XRAY In Process Unspecified. EDMS 15:52 EKG done, by ED staff. tm3 16:57 Daniel Mullen MD is Referral Physician. [facility] 17:09 IV discontinued, intact, bleeding controlled, No redness/swelling at site. Pressure ll1 dressing applied. Administered Medications: 15:07 Drug: Zofran (Ondansetron) 4 mg Route: IVP; Site: right antecubital; ll1 19:02 Follow up: Response: No adverse reaction ll1 15:09 Drug: morphine 2 mg {Note: RASS 0, pain 8/10.} Route: IVP; Infused Over: 4 mins; Site: ll1 right antecubital; 17:08 Follow up: Response: No adverse reaction 1 16:16 Drug: fentaNYL (PF) 25 mcg Route: IVP; Site: right antecubital; vg1 19:03 Follow up: Response: No adverse reaction ll1 Medication: 15:14 VIS not applicable for this client. ll1 Outcome: 16:57 Discharge ordered by . [facility] 17:09 Patient left the ED. ll1 17:09 Discharged to home via wheelchair. ll1 17:09 Condition: stable 17:09 Discharge instructions given to patient, family, Instructed on discharge instructions, follow up and referral plans. medication usage, Demonstrated understanding of instructions, follow-up care, medications, Prescriptions given X 1. Signatures: Dispatcher [employer] EDMS Arjun Godoy tm3 Enmanuel Licona PA PA jmm Garcia, Rubi rg4 Francine Chavarria RN RN ap3 Demetria Foster RN RN vg1 Dennis Marin, BRANNON RN ll1 Corrections: (The following items were deleted from the chart) 14:43 14:40 Allergies: NKA; ap3 ap3 14:43 14:40 Home Meds: carvedilol 12.5 mg Oral tab 1 tab 2 times per day; ap3 ap3 14:43 14:40 Home Meds: citalopram 40 mg tab 1 tab once daily; ap3 ap3 14:43 14:40 Home Meds: indapamide 2.5 mg Oral tab 1 tab once daily; ap3 ap3 14: 14:40 Home Meds: losartan 100 mg Oral tab 1 tab once daily; ap3 ap3 14: 14:40 Home Meds: magnesium oxide 400 mg Oral tab daily; ap3 ap3 14: 14:40 Home Meds: potassium chloride 10 mEq Oral TbER 1 tab once daily; ap3 ap3 14 14:40 Home Meds: simvastatin 40 mg Oral tab 1 tab once daily; ap3 ap3 19:01 19:01 Reassessment: ll1 ll1
--- NOTE | 2022-08-13 16:58 | EDPHYS ---
Physician Documentation [facility] Name: Patito Bell Age: 86 yrs Sex: Female : 1935 Arrival Date: 08/13/2022 Time: 14:20 Bed 4 Private MD: ED Physician Timothy Andrews HPI: 08/13 14:43 This 86 yrs old Black Female presents to ER via Wheelchair with complaints of Fall jmm Injury. 14:43 Details of fall: The patient fell from an upright position. Onset: The symptoms/episode jmm began/occurred acutely. Is an 86-year-old female with history of hyperlipidemia and hypertension the presents emerged department with complaints of headache, neck pain and right hip pain following a fall which occurred while she was attempting to make her bed. Patient states she fell backwards hitting her head against a dresser denies any loss of consciousness. Pain is mainly to the right hip. Denies back pain. Historical: - Allergies: 14:40 No Known Allergies; ap3 - Home Meds: 14:40 Unable to obtain [Active]; ap3 - PMHx: 14:40 Hyperlipidemia; Hypertension; RLE DVT; ap3 - Immunization history:: Flu vaccine is not up to date. - Social history:: Smoking status: Patient denies any tobacco usage or history of. ROS: 14:43 Constitutional: Negative for fever, chills, and weight loss, Cardiovascular: Negative jmm for chest pain, palpitations, and edema, Respiratory: Negative for shortness of breath, cough, wheezing, and pleuritic chest pain. 14:43 MS/extremity: Positive for pain. 14:43 Neuro: Positive for headache. 14:43 All other systems are negative. Exam: 14:43 Constitutional: This is a well developed, well nourished patient who is awake, alert, jmm and in no acute distress. Head/Face: atraumatic. Eyes: EOMI, no conjunctival erythema appreciated ENT: Moist Mucus Membranes Neck: Trachea midline, Supple Chest/axilla: Normal chest wall appearance and motion. Cardiovascular: Regular rate and rhythm. No edema appreciated Respiratory: Normal respirations, no respiratory distress appreciated Abdomen/GI: Non distended Back: Normal ROM Skin: General appearance color normal 14:43 Musculoskeletal/extremity: Right hip pain on palpation, painful flexion appreciated, compartments are soft, full dorsalis pedis pulse, neurovascular intact. 14:43 Skin: Appearance: Color: normal in color. 14:43 Neuro: Orientation: is normal, Mentation: is normal, Memory: is normal. 14:43 Psych: Behavior/mood is pleasant, cooperative. Vital Signs: 14:39 BP 141 / 68; Pulse 58; Resp 21; Temp 98.2; Pulse Ox 98% ; ap3 15:14 Pulse 65; Resp 19; ll1 17:05 BP 107 / 57; Pulse 53; Resp 18; Pulse Ox 98% ; ll1 MDM: 14:43 Patient medically screened. [facility] 16:57 Data reviewed: vital signs, nurses notes, lab test result(s), radiologic studies. [facility] 19:18 Differential diagnosis: Acute head injury, cervical fracture, cervical strain, hip m strain, hip contusion, intertrochanteric fracture, femoral neck fracture, femur fracture. I considered the following discharge prescriptions or medication management in the emergency department Medications were administered in the Emergency Department. See MAR. Independent interpretation of the following test(s) in the Emergency Department X-Ray: My interpretation is No fracture appreciated. Historians other than the Patient: Family. Counseling: I had a detailed discussion with the patient and/or guardian regarding: the historical points, exam findings, and any diagnostic results supporting the discharge/admit diagnosis, radiology results, the need for outpatient follow up, to return to the emergency department if symptoms worsen or persist or if there are any questions or concerns that arise at home. 08/13 14:44 Order name: Basic Metabolic Panel; Complete Time: 15:42 [facility] 08/13 14:44 Order name: CBC with Diff; Complete Time: 15:23 [facility] 08/13 14:44 Order name: Troponin HS; Complete Time: 15:42 [facility] 08/13 14:44 Order name: XRAY Chest (1 view); Complete Time: 15:34 [facility] 08/13 14:44 Order name: EKG; Complete Time: 14:45 [facility] 08/13 14:44 Order name: Cardiac monitoring; Complete Time: 15:26 [facility] 08/13 14:44 Order name: EKG - Nurse/Tech; Complete Time: 15:26 [facility] 08/13 14:44 Order name: IV Saline Lock; Complete Time: 15:12 [facility] 08/13 14:44 Order name: Labs collected and sent; Complete Time: 15:12 [facility] 08/13 14:44 Order name: O2 Per Protocol; Complete Time: 15:12 [facility] 08/13 14:44 Order name: O2 Sat Monitoring; Complete Time: 15:12 [facility] 08/13 14:45 Order name: CT Traumagram (Head C Spine CAP wo con); Complete Time: 15:16 [facility] 08/13 15:17 Order name: Femur Right XRAY; Complete Time: 16:10 [facility] Administered Medications: 15:07 Drug: Zofran (Ondansetron) 4 mg Route: IVP; Site: right antecubital; ll1 19:02 Follow up: Response: No adverse reaction 1 15:09 Drug: morphine 2 mg {Note: RASS 0, pain 8/10.} Route: IVP; Infused Over: 4 mins; Site: ll1 right antecubital; 17:08 Follow up: Response: No adverse reaction 1 16:16 Drug: fentaNYL (PF) 25 mcg Route: IVP; Site: right antecubital; 1 19:03 Follow up: Response: No adverse reaction ll1 Disposition Summary: 08/13/22 16:57 Discharge Ordered Location: Home [facility] Condition: Stable [facility] Diagnosis - Strain of muscle, fascia and tendon of right hip [facility] Followup: [facility] - With: Daniel Mullen MD - When: 2 - 3 days - Reason: Recheck today's complaints, Continuance of care, Re-evaluation by your physician Discharge Instructions: - Discharge Summary Sheet [facility] - Hip Sprain [facility] Forms: - Medication Reconciliation Form [facility] - Thank You Letter [facility] - Antibiotic Education [facility] - Prescription Opioid Use [facility] Prescriptions: - orphenadrine citrate 100 mg Oral Tablet Sustained Release - take 1 tablet by ORAL route 2 times per day As needed; 20 tablet; Refills: 0, [facility] Product Selection Permitted Signatures: Dispatcher [employer] Enmanuel Solares PA PA jmm Prokisch, Amanda RN RN [email or web address] Demetria Foster RN RN [id number] Dennis Marin, RN RN ll1 Corrections: (The following items were deleted from the chart) 14:43 14:40 Allergies: NKA; ap3 ap3 14:43 14:40 Home Meds: carvedilol 12.5 mg Oral tab 1 tab 2 times per day; ap3 ap3 14 14:40 Home Meds: citalopram 40 mg tab 1 tab once daily; ap3 ap3 14:40 Home Meds: indapamide 2.5 mg Oral tab 1 tab once daily; ap3 ap3 14:40 Home Meds: losartan 100 mg Oral tab 1 tab once daily; ap3 ap3 14:40 Home Meds: magnesium oxide 400 mg Oral tab daily; ap3 ap3 14:40 Home Meds: potassium chloride 10 mEq Oral TbER 1 tab once daily; ap3 ap3 14:40 Home Meds: simvastatin 40 mg Oral tab 1 tab once daily; ap3 ap3
--- NOTE | 2022-08-14 11:16 | EKG ---
Test Date: 2022-08-13 Test Time: 15:49:32 Molding Press Operator: TM MEASUREMENT RESULTS: Intervals: Rate: 54 AR: 180 QRSD: 70 QT: 468 QTc: 443 [place]: P: 66 AR: 180 QRS: 65 T: 74 INTERPRETIVE STATEMENTS: Sinus bradycardia Otherwise normal ECG Compared to ECG 11/14/2020 22:08:46 Sinus arrhythmia no longer present Electronically Signed On 08-14-22 11:14:58 LAY OUT MACHINE OPERATOR by Trey Nails
== END 2022-08-13 17:09 | disposition home or self-care (01) ==
LOC: ER 14:17
DX: S76.011A Strain of muscle, fascia and tendon of right hip, initial encounter (principal); I10 Essential (primary) hypertension
CPT/HCPCS: 85025; 80048; 36415; 84484; 70450; 71250; 72125; 71045; 73552; J3010; J2270; J2405; 93005

== ENCOUNTER 2022-08-21 11:43 | Observation (INO) | payer OTHER ==
[2022-08-21 12:42] LABS: SARS-CoV-2 Antigen Rapid Res Negative (Negative)
--- OUTSIDE RECORDS SUMMARY | 2022-08-21 13:00 | XMS REPORT | Continuity of Care Document ---
:1935 Author Organization [facility] t Address [address] [place] [id number] Care Team Providers Name Role Phone Unavailable Unavailable Unavailable Payers Payer Name Policy Type Policy Number Effective Date Expiration Date S [facility] [id number] 2022 (MEDICARE 00:00:00 REPLACEMENT HMO) Problems This patient has no known problems. Allergies, Adverse Reactions, Alerts This patient has no known allergies or adverse reactions. Medications This patient has no known medications. Procedures This patient has no known procedures. Encounters Start End Encounter Admission Attending Care Care Encounter Source Date/Time Date/Time Type Type Clinicians Facility Department ID 2022-04-19 2022-04-19 Outpatient [facility] [id number] [facility]:00:[facility] 00:00:[facility] [id number] Results This patient has no known results.
[2022-08-21] MEDS ORDERED: DIPHENHYDRAMINE 25 MG TAB/CAP PO PRN (13:45)
[2022-08-21] MEDS ORDERED: LOPERAMIDE HCL 2 MG CAPSULE PO PRN (13:45)
[2022-08-21] MEDS ORDERED: ACETAMINOPHEN 325 MG TABLET PO PRN (13:45)
[2022-08-21] MEDS ORDERED: ONDANSETRON 4 MG/2 ML VIAL IV PRN (13:45)
[2022-08-21 14:10] LABS: Absolute Lymphocytes (CBC) 1.4 K/uL (0.7-4.9); Hematocrit 39.3 % (36.0-45.0); Lymphocytes % 18.9 % (15.3-44.8); MCV 88.9 fL (80-100); MPV 7.8 fL (7.6-11.3); RBC Red Blood Cell Count 4.42 M/uL (3.86-4.86)
[2022-08-21] MEDS ORDERED: HYDROMORPHONE HCL 1 MG/ML INJ IV PRN (14:14)
[2022-08-21 14:25] LABS: Protime INR 1.01
[2022-08-21 14:49] LABS: Albumin 3.5 g/dL (3.4-5.0); Bilirubin Direct 0.2 mg/dL (0-0.2); Bilirubin Total 0.9 mg/dL (0.2-1.0); Phosphorus 3.5 mg/dL (2.5-4.9); Potassium 4.4 mmol/L (3.5-5.1); Protein, Total 7.5 g/dL (6.4-8.2); Thyroid Stimulating Hormone 0.866 uIU/mL (0.358-3.740)
[2022-08-21] MEDS: NACHLORIDE 0.45% 1,000 ML IV SCH (15:02)
[2022-08-21 15:05] VITALS: BMI 18.9
--- NOTE | 2022-08-21 17:13 | RAD REPORT ---
[facility]AM DES[facility] 5:01 pm CLINICAL HISTORY: falls COMPARISON: Chest Single View dated 08/13/2022; Chest Single View dated 07/10/2018; Chest Single View dated 10/19/2016; CHEST SINGLE VIEW dated 11/25/2012 TECHNIQUE: Portable AP view of the chest. FINDINGS: The lungs are clear.Elevation of the left hemidiaphragm, and left basilar mild atelectasis again noted. No pneumothorax or effusion. The cardiomediastinal contours are unchanged, with tortuos ity of the thoracic aorta. . IMPRESSION: No acute cardiopulmonary process.
[2022-08-21] MEDS: ENOXAPARIN 40 MG/0.4 ML SQ SCH (18:22)
[2022-08-21 19:23] LABS: Specific Gravity 1.014 (1.005-1.030); Transitional Epithelial <5 /HPF (None Seen); Urine Bacteria <20 /HPF (<20); Urine Bilirubin NEGATIVE (Negative); Urine Blood Trace (Negative); Urine Clarity Clear (Clear); Urine Color Light-Yellow (Yellow); Urine Glucose NEGATIVE (Negative); Urine Mucus Slight /HPF (None Seen); Urine Protein NEGATIVE (Negative); Urine RBC <5 /HPF (None Seen); Urine Urobilinogen Normal (Normal); Urine pH 5.5 (5.0-7.0)
--- NOTE | 2022-08-21 22:12 | RAD REPORT ---
EXAM DESCRIPTION: MRI - Hip Right Wo Cont - 08/21/2022 9:22 pm CLINICAL HISTORY: fall Right hip pain. Leg weakness COMPARISON: Femur Right dated 08/13/2022; Lumbar Spine Wo Con dated 08/21/2022 TECHNIQUE Multiplanar multisequence noncontrast MRI of the right hip. FINDINGS: T2 hyperintense, T1 hypointense, signal along the lower sacral segments and coccygeal segm ents, extending towards the sacral ala (best appreciated on axial T2 images, for example series 4, im age 1/28). Mild edema along the origin of the piriformis muscles bilaterally. No other evidence of an acute fracture along the pelvic bones. The femoroacetabular articulations are well-aligned. The femoral head and neck demonstrate no abnormal signal bilaterally. Mild bilateral h ip joint degenerative changes with marginal spurring. The right acetabular labrum is grossly intact, within limits of non arthrographic examination. No right hip joint effusion. Major muscles and tendons are unremarkable. The visualized pelvic structures are unremarkable. IMPRESSION: Signal abnormalities involving the lower sacral segments, coccyx, and extending towards the lower sacral ala. These are suggestive of traumatic or stress fractures. Bilateral mild hip joint degenerative changes.
--- NOTE | 2022-08-21 22:40 | RAD REPORT ---
EXAM DESCRIPTION: MRI - Lumbar Spine Wo Con - 08/21/2022 9:22 pm CLINICAL HISTORY: fall COMPARISON: Hip Right Wo Cont dated 08/21/2022 TECHNIQUE: Multiplanar multisequence MRI of the lumbar spine performed, without intravenous gadolini um contrast. FINDINGS: Preserved lumbar lordosis without spondylolisthesis. Superior endplate central wedge compr ession deformity with mild compression at L3, with underlying marrow edema suggesting acute or recent fracture. No retropulsion. Other vertebral body heights are well preserved. No other suspicious saroj ow signal. No paraspinal masses or edema. Conus terminates at the appropriate level. Cauda equina roots are unremarkable, with no clumping or t hickening. T12-L1: No significant findings. L1-L2: No significant findings. L2-L3: Mild broad-based disc bulge. Mild bilateral facet arthropathy. No significant central canal st enosis. Mild right neural foraminal narrowing. L3-L4 level: Broad-based disc bulge. Bilateral facet arthropathy. No significant central canal stenos is or neural foraminal narrowing. L4-L5 level: Mild broad-based disc bulge with endplate remodeling. Bilateral advanced facet arthropat hy with ligamentum flavum buckling and facet effusions. Mild central canal stenosis with additional n arrowing of the lateral recesses. Left moderate and right mild to moderate neural foraminal narrowing with facet spurring approximating the exiting left L4 nerve root. L5-S1 level: Broad-based disc bulge. Bilateral advanced facet arthropathy. No significant central can al stenosis. Right moderate and left mild neural foraminal narrowing. A small left synovial cyst proj ects along the left foraminal/ extraforaminal exiting root of L5. This measures 6 millimeter. IMPRESSION: Acute or recent superior endplate compression deformity of L3. Other multilevel degenerative changes as above, with mild central canal stenosis and bilateral latera l recess narrowing at L4-5, and variable degrees of neural foraminal narrowing up to moderate on the left at L4-5 and on the right at L5-S1. I attempted to communicate the findings to Dr. Maldonado Childress on 08/21/2022 at 22:36 hours, but was not s uccessful. A voicemail was left.
[2022-08-22 04:00] LABS: Absolute Lymphocytes (CBC) 1.3 K/uL (0.7-4.9); Lymphocytes % 21.8 % (15.3-44.8); MCV 88.2 fL (80-100); MPV 7.7 fL (7.6-11.3); RBC Red Blood Cell Count 3.86 M/uL (3.86-4.86)
[2022-08-22 04:07] LABS: Potassium 3.6 mmol/L (3.5-5.1)
[2022-08-22] MEDS: NACHLORIDE 0.45% 1,000 ML IV SCH (06:43)
[2022-08-22] MEDS: GABAPENTIN 100 MG CAP PO SCH ×3 (08:12→19:55)
[2022-08-22] MEDS: carvediloL 12.5 MG TAB PO SCH ×2 (08:12→19:56)
[2022-08-22] MEDS: MAGNESIUM OXIDE 400 MG TAB PO SCH (08:13)
[2022-08-22] MEDS: CITALOPRAM 10 MG TABLET PO SCH (08:13)
[2022-08-22] MEDS ORDERED: POTASSIUM CL SA 10 MEQ TAB PO ONE (09:00)
--- NOTE | 2022-08-22 16:23 | EKG ---
Test Date: 2022-08-21 Test Time: 14:21:11 Net Programmer Analyst: JOHN MEASUREMENT RESULTS: Intervals: Rate: 79 WA: 128 QRSD: 82 QT: 444 QTc: 509 [place]: P: 62 WA: 128 QRS: 75 T: 66 INTERPRETIVE STATEMENTS: Normal sinus rhythm Prolonged QT Abnormal ECG Compared to ECG 08/13/2022 15:49:32 Prolonged QT interval now present Sinus bradycardia no longer present Electronically Signed On 08-22-22 16:20:03 HEMMER LOCKSTITCH by Trey Nails
[2022-08-22] MEDS: ENOXAPARIN 40 MG/0.4 ML SQ SCH (16:53)
--- NOTE | 2022-08-22 18:06 | RAD REPORT ---
EXAM DESCRIPTION: MRI - Brain Wo Cont - 08/22/2022 5:36 pm CLINICAL HISTORY: altered mental status Headache, drowsiness, alteration of awareness COMPARISON: Head Brain Wo Cont dated 10/19/2016 TECHNIQUE: Multi-sequence, multiplanar MR imaging of the brain was performed without contrast. FINDINGS: No intracranial hemorrhage, hydrocephalus or extra-axial fluid collections.Moderate genera lized brain atrophy is present with mild periventricular and deep white matter chronic microvascular ischemic changes. No edema or shift of midline structures. No findings to suspect brain mass. DWI is negative for acute CVA. Midline structures are normally formed. Mastoid air cells and paranasal sinuses are clear. IMPRESSION: Negative for acute CVA or other acute intracranial abnormality.
[2022-08-22] MEDS: ATORVASTATIN 20 MG TAB PO SCH (19:56)
[2022-08-22] MEDS: ENSURE ENLIVE 237 ML CAN PO SCH (19:56)
--- NOTE | 2022-08-22 21:39 | P.PN ---
Subjective Date of Service: 08/22/22 Chief Complaint: WEAK, PAIN, CAN'T WALK Subjective: Improving SHE IS COMFORTABLE IN BED. ANY MOVEMENT IS PAINFUL. Review of Systems 10-point ROS is otherwise unremarkable General: Weakness Physical Examination - Vital Signs Temperature: 96.9 F Blood Pressure: 133/66 Pulse: 71 Respirations: 17 Pulse Ox (%): 96 - Physical Exam General: Oriented x3, Moderate distress HEENT: Atraumatic, PERRLA, EOMI Neck: Supple, JVD not distended Respiratory: Clear to auscultation bilaterally, Normal air movement Cardiovascular: Regular rate/rhythm, Normal S1 S2 Gastrointestinal: Normal bowel sounds, No tenderness Musculoskeletal: Tenderness Integumentary: No rashes Neurological: Normal speech, Normal tone, Normal affect Lymphatics: No axilla or inguinal lymphadenopathy - Studies Laboratory Data (last 24 hrs) 08/22/22 03:43: Sodium 132 L, Potassium 3.6 D, BUN 24 H, Creatinine 0.94, Glucose 79, Magnesium 2.0 08/22/22 03:43: WBC 6.10, Hgb 10.9 L D, Hct 34.0 L, Plt Count 256 Medications List Reviewed: Yes Assessment And Plan - Current Problems (Diagnosis) (1) Defect of endplate of vertebra Current Visit: Yes Status: Acute Plan: THIS FRACTURE IS FROM THE FALL SHE WILL NEED SNIF AND PT PAIN CONTROL. (2) Sacral fracture, closed Current Visit: Yes Status: Acute Plan: ABOVE. (3) HTN (hypertension) Current Visit: Yes Status: Chronic Plan: FU AND TREAT IF CONTINUES. (4) Osteopenia Current Visit: Yes Status: Chronic Plan: FRACTURE SCORE LOW PER FRAX. CITRACAL ORALLY.
[2022-08-23] MEDS: NACHLORIDE 0.45% 1,000 ML IV SCH ×4 (00:09→20:32)
[2022-08-23 05:05] LABS: Absolute Lymphocytes (CBC) 1.3 K/uL (0.7-4.9); Hematocrit 32.6 % (36.0-45.0); Lymphocytes % 26.3 % (15.3-44.8); MPV 8.3 fL (7.6-11.3); RBC Red Blood Cell Count 3.75 M/uL (3.86-4.86)
[2022-08-23 05:11] LABS: Potassium 3.5 mmol/L (3.5-5.1)
[2022-08-23] MEDS ORDERED: POTASSIUM CL SA 10 MEQ TAB PO ONE (05:36)
[2022-08-23] MEDS: GABAPENTIN 100 MG CAP PO SCH ×3 (08:51→20:29)
[2022-08-23] MEDS: CITALOPRAM 10 MG TABLET PO SCH (08:51)
[2022-08-23] MEDS: carvediloL 12.5 MG TAB PO SCH ×2 (08:52→20:29)
[2022-08-23] MEDS: MAGNESIUM OXIDE 400 MG TAB PO SCH (08:52)
[2022-08-23] MEDS: ENSURE ENLIVE 237 ML CAN PO SCH ×2 (08:52→20:29)
[2022-08-23] MEDS: TRAMADOL HCL 50 MG TAB PO PRN ×2 (11:38→20:28)
--- NOTE | 2022-08-23 13:49 | P.PN ---
Subjective Date of Service: 08/23/22 Chief Complaint: BACK PAIN, Subjective: No new changes SHE IS COMFORTABLE IN BED. ANY MOVEMENT IS PAINFUL. SHE IS STILL IN PAIN AND NOT ABLE TO MOVE AROUND MUCH IN BED ALSO. Review of Systems 10-point ROS is otherwise unremarkable General: Weakness Physical Examination - Vital Signs Temperature: 97.9 F Blood Pressure: 127/75 Pulse: 80 Respirations: 16 Pulse Ox (%): 96 - Physical Exam General: Alert, In no apparent distress HEENT: Atraumatic, PERRLA, EOMI Neck: Supple, JVD not distended Respiratory: Clear to auscultation bilaterally, Normal air movement Cardiovascular: Regular rate/rhythm, Normal S1 S2 Gastrointestinal: Normal bowel sounds, No tenderness Musculoskeletal: Tenderness (SPINE), Other Integumentary: No rashes Neurological: Normal speech, Normal tone, Normal affect Lymphatics: No axilla or inguinal lymphadenopathy - Studies Laboratory Data (last 24 hrs) 08/23/22 03:32: Sodium 136 D, Potassium 3.5, BUN 17, Creatinine 0.70, Glucose 93, Magnesium 2.0 08/23/22 03:32: WBC 4.80, Hgb 10.9 L, Hct 32.6 L, Plt Count 249 Medications List Reviewed: Yes Assessment And Plan - Current Problems (Diagnosis) (1) Defect of endplate of vertebra Current Visit: Yes Status: Acute Plan: THIS FRACTURE IS FROM THE FALL SHE WILL NEED SNIF AND PT PAIN CONTROL. PT CONSULT SNIF CONSULT SW WORKING ON REFERRAL PROCESS. (2) Sacral fracture, closed Current Visit: Yes Status: Acute Plan: ABOVE. (3) HTN (hypertension) Current Visit: Yes Status: Chronic Plan: FU AND TREAT IF CONTINUES. (4) Osteopenia Current Visit: Yes Status: Chronic Plan: FRACTURE SCORE LOW PER FRAX. CITRACAL ORALLY.
[2022-08-23] MEDS: ENOXAPARIN 40 MG/0.4 ML SQ SCH (17:19)
[2022-08-23] MEDS: ATORVASTATIN 20 MG TAB PO SCH (20:29)
[2022-08-24 04:46] LABS: Absolute Lymphocytes (CBC) 1.2 K/uL (0.7-4.9); Hematocrit 33.5 % (36.0-45.0); Lymphocytes % 30.3 % (15.3-44.8); MCV 87.6 fL (80-100); MPV 8.3 fL (7.6-11.3); RBC Red Blood Cell Count 3.83 M/uL (3.86-4.86)
[2022-08-24 05:05] LABS: Magnesium 1.8 mg/dL (1.6-2.4); Potassium 3.6 mmol/L (3.5-5.1)
[2022-08-24] MEDS ORDERED: MAGNESIUM SULFATE 1 gm IVPB 1 GM/100 ML BAG IV ONE (05:14)
--- NOTE | 2022-08-24 08:55 | P.PN ---
Subjective Date of Service: 08/24/22 Chief Complaint: BACK PAIN, Subjective: Improving SHE IS COMFORTABLE IN BED. ANY MOVEMENT IS PAINFUL. SHE IS STILL IN PAIN AND NOT ABLE TO MOVE AROUND MUCH IN BED ALSO. PAIN IS BETTER SLEEPY, NOT DOING MUCH PT. WILL STOP DILAUDID. Review of Systems 10-point ROS is otherwise unremarkable Physical Examination - Vital Signs Temperature: 96.8 F Blood Pressure: 165/75 Pulse: 66 Respirations: 18 Pulse Ox (%): 95 - Physical Exam General: Oriented x3, Mild distress (WHEN LAYING.), Severe distress (WHEN IS DOING ANY MOVEMENT. ) HEENT: Atraumatic, PERRLA, EOMI Neck: Supple, JVD not distended Respiratory: Clear to auscultation bilaterally, Normal air movement Cardiovascular: Regular rate/rhythm, Normal S1 S2 Gastrointestinal: Normal bowel sounds, No tenderness Musculoskeletal: No tenderness Integumentary: No rashes Neurological: Normal speech, Normal tone, Normal affect Lymphatics: No axilla or inguinal lymphadenopathy - Studies Laboratory Data (last 24 hrs) 08/24/22 03:48: Sodium 136, Potassium 3.6, BUN 11, Creatinine 0.55, Glucose 96, Magnesium 1.8 08/24/22 03:48: WBC 4.00 L, Hgb 10.8 L, Hct 33.5 L, Plt Count 245 Microbiology Data (last 24 hrs): 08/21/22 18:44 Clean Catch Urine [place] Count - Final <10,000 CFU/ML. 08/21/22 18:44 Clean Catch Urine - Final MIXED ELVA. Medications List Reviewed: Yes Assessment And Plan - Current Problems (Diagnosis) (1) Defect of endplate of vertebra Current Visit: Yes Status: Acute Plan: THIS FRACTURE IS FROM THE FALL SHE WILL NEED SNIF AND PT PAIN CONTROL. PT CONSULT SNIF CONSULT SW WORKING ON REFERRAL PROCESS. (2) Sacral fracture, closed Current Visit: Yes Status: Acute Plan: ABOVE. CONT PT CONT SW VISIT FOR PLACEMENT. (3) HTN (hypertension) Current Visit: Yes Status: Chronic Plan: FU AND TREAT IF CONTINUES. (4) Osteopenia Current Visit: Yes Status: Chronic Plan: FRACTURE SCORE LOW PER FRAX. CITRACAL ORALLY.
[2022-08-24] MEDS ORDERED: POTASSIUM 25 MEQ EFFERV TAB PO ONE ×2 (09:00)
[2022-08-24] MEDS: MAGNESIUM OXIDE 400 MG TAB PO SCH (09:00)
[2022-08-24] MEDS: TRAMADOL HCL 50 MG TAB PO PRN ×2 (09:31→20:17)
[2022-08-24] MEDS: carvediloL 12.5 MG TAB PO SCH ×2 (09:32→20:17)
[2022-08-24] MEDS: GABAPENTIN 100 MG CAP PO SCH ×2 (09:32→20:18)
[2022-08-24] MEDS: CITALOPRAM 10 MG TABLET PO SCH (09:33)
[2022-08-24] MEDS: ENSURE ENLIVE 237 ML CAN PO SCH ×2 (09:33→20:18)
[2022-08-24] MEDS: NACHLORIDE 0.45% 1,000 ML IV SCH (14:57)
[2022-08-24] MEDS: ENOXAPARIN 40 MG/0.4 ML SQ SCH (17:38)
[2022-08-24] MEDS: ATORVASTATIN 20 MG TAB PO SCH (20:17)
[2022-08-25] MEDS: CITALOPRAM 10 MG TABLET PO SCH (09:11)
[2022-08-25] MEDS: carvediloL 12.5 MG TAB PO SCH ×2 (09:12→21:08)
[2022-08-25] MEDS: ENSURE ENLIVE 237 ML CAN PO SCH ×2 (09:12→21:09)
[2022-08-25] MEDS: MAGNESIUM OXIDE 400 MG TAB PO SCH (09:12)
[2022-08-25] MEDS: GABAPENTIN 100 MG CAP PO SCH ×4 (09:14→21:09)
[2022-08-25] MEDS: TRAMADOL HCL 50 MG TAB PO PRN ×2 (09:25→21:08)
[2022-08-25 14:44] VITALS: O2SAT 95
[2022-08-25] MEDS: ENOXAPARIN 40 MG/0.4 ML SQ SCH (17:30)
[2022-08-25] MEDS: NACHLORIDE 0.45% 1,000 ML IV SCH (17:30)
[2022-08-25] MEDS: ATORVASTATIN 20 MG TAB PO SCH (21:08)
--- NOTE | 2022-08-25 21:57 | P.PN ---
Subjective Date of Service: 08/25/22 Chief Complaint: MUCH BETTER, BACK PAIN IS BETTER. Subjective: Improving SHE IS COMFORTABLE IN BED. ANY MOVEMENT IS PAINFUL. SHE IS STILL IN PAIN AND NOT ABLE TO MOVE AROUND MUCH IN BED ALSO. PAIN IS BETTER SLEEPY, NOT DOING MUCH PT. WILL STOP DILAUDID. SHE IS BETTER NO FEVER. ABLE TO SIT UP AND EAT NOW. Review of Systems 10-point ROS is otherwise unremarkable Physical Examination - Vital Signs Temperature: 96.9 F Blood Pressure: 165/76 Pulse: 69 Respirations: 18 Pulse Ox (%): 97 - Physical Exam General: Oriented x3, Mild distress HEENT: Atraumatic, PERRLA, EOMI Neck: Supple, JVD not distended Respiratory: Clear to auscultation bilaterally, Normal air movement Cardiovascular: Regular rate/rhythm, Normal S1 S2 Gastrointestinal: Normal bowel sounds, No tenderness Musculoskeletal: No tenderness Integumentary: No rashes Neurological: Normal speech, Normal tone, Normal affect Lymphatics: No axilla or inguinal lymphadenopathy - Studies Medications List Reviewed: Yes Assessment And Plan - Current Problems (Diagnosis) (1) Defect of endplate of vertebra Current Visit: Yes Status: Acute Plan: THIS FRACTURE IS FROM THE FALL SHE WILL NEED SNIF AND PT PAIN CONTROL. PT CONSULT SNIF CONSULT SW WORKING ON REFERRAL PROCESS. GABAPENTIN IS HELPING. [place] MAY GO TO [place] IN AM. (2) Sacral fracture, closed Current Visit: Yes Status: Acute Plan: ABOVE. CONT PT CONT SW VISIT FOR PLACEMENT. (3) HTN (hypertension) Current Visit: Yes Status: Chronic Plan: FU AND TREAT IF CONTINUES. (4) Osteopenia Current Visit: Yes Status: Chronic Plan: FRACTURE SCORE LOW PER FRAX. CITRACAL ORALLY.
[2022-08-26] MEDS ORDERED: MAGNESIUM SULFATE 1 gm IVPB 1 GM/100 ML BAG IV ONE (09:00)
[2022-08-26] MEDS ORDERED: HYDRALAZINE HCL 25 MG TABLET PO SCH (09:00)
[2022-08-26] MEDS ORDERED: POTASSIUM CL SA 10 MEQ TAB PO ONE (09:00)
[2022-08-26] MEDS ORDERED: INDAPAMIDE 1.25 MG TAB PO SCH (09:00)
[2022-08-26] MEDS ORDERED: LOSARTAN POTASSIUM 50 MG TABLET PO SCH (09:00)
[2022-08-26] MEDS ORDERED: POTASSIUM CL SA 10 MEQ TAB PO SCH (09:00)
[2022-08-26] MEDS: CITALOPRAM 10 MG TABLET PO SCH (11:00)
[2022-08-26] MEDS: MAGNESIUM OXIDE 400 MG TAB PO SCH (11:00)
[2022-08-26] MEDS: carvediloL 12.5 MG TAB PO SCH (11:01)
[2022-08-26] MEDS: GABAPENTIN 100 MG CAP PO SCH ×2 (11:01→14:21)
[2022-08-26] MEDS: ENSURE ENLIVE 237 ML CAN PO SCH (11:02)
[2022-08-26 16:04] VITALS: BP 134/74; TEMP 97.2
--- NOTE | 2022-08-26 16:59 | P.DS ---
Admission Date: 08/21/22 Discharge Date: 08/26/22 Disposition: TRANSFER TO [facility] Discharge Condition: FAIR Reason for Admission: MUCH BETTER, BACK PAIN IS BETTER. - Problems (1) Defect of endplate of vertebra Current Visit: Yes Status: Acute (2) Sacral fracture, closed Current Visit: Yes Status: Acute (3) HTN (hypertension) Current Visit: Yes Status: Chronic (4) Osteopenia Current Visit: Yes Status: Chronic Hospital Course: OSORIO HAD FALLENDAT HOME HAS INSUFFICIENCY FRACTURE OF END PLATE, L SPINE AND SACRUM. SHE IS LOT BETTER. SHE IS DISCHARGED TO [facility]. Vital Signs/Physical Exam: Temp Pulse Resp BP Pulse Ox 97.2 F 58 16 134/74 98 08/26/22 16:00 08/26/22 16:00 08/26/22 16:00 08/26/22 16:00 08/26/22 16:00 Laboratory Data at Discharge: WBC 4.00 K/uL (4.3-10.9) L 08/24/22 03:48 Hgb 10.8 g/dL (12.0-15.0) L 08/24/22 03:48 Hct 33.5 % (36.0-45.0) L 08/24/22 03:48 Plt Count 245 K/uL (152-406) 08/24/22 03:48 PT 11.1 SECONDS (9.5-12.5) 08/21/22 14:01 INR 1.01 08/21/22 14:01 APTT 32.4 SECONDS (24.3-36.9) 08/21/22 14:01 Sodium 136 mmol/L (136-145) 08/24/22 03:48 Potassium 3.6 mmol/L (3.5-5.1) 08/24/22 03:48 BUN 11 mg/dL (7-18) 08/24/22 03:48 Creatinine 0.55 mg/dL (0.55-1.02) 08/24/22 03:48 Glucose 96 mg/dL (74-106) 08/24/22 03:48 Phosphorus 3.5 mg/dL (2.5-4.9) 08/21/22 14:01 Magnesium 1.8 mg/dL (1.6-2.4) 08/24/22 03:48 Total Bilirubin 0.9 mg/dL (0.2-1.0) 08/21/22 14:01 AST 12 U/L (15-37) L 08/21/22 14:01 ALT 12 U/L (13-56) L 08/21/22 14:01 Alkaline Phosphatase 51 U/L (45-117) 08/21/22 14:01 Home Medications: Carvedilol [Coreg] 12.5 mg PO BID 08/21/22 Citalopram Hydrobromide [Citalopram HBr] 40 mg PO DAILY 08/21/22 Gabapentin 100 mg PO TID 08/21/22 Hydralazine [Apresoline*] 25 mg PO BID 08/21/22 Indapamide [Lozol] 2.5 mg PO DAILY 08/21/22 Losartan Potassium 100 mg PO DAILY 08/21/22 Magnesium Oxide 400 mg PO DAILY 08/21/22 Potassium Oral Tab [Klor-Con 10 mEq Tab*] 10 meq PO DAILY 08/21/22 Simvastatin 40 mg PO BEDTIME 08/21/22 Risedronate Sodium [Actonel*] 35 mg PO Q7D@0600 tab 08/26/22 traMADol HCL [Ultram*] 50 mg PO Q6H PRN tab 08/26/22 Followup: Maldonado Childress MD [ACTIVE - CAN ADMIT] -
[2022-08-29] MEDS ORDERED: RISEDRONATE SODIUM 35 MG TAB PO SCH (06:00)
== END 2022-08-26 14:50 ==
LOC: 4TH 12:57
PROVIDERS: ADMIT Internal Medicine; ATTEND Internal Medicine
DX: S32.10XA Unspecified fracture of sacrum, initial encounter for closed fracture (principal); M43.8X6 Other specified deforming dorsopathies, lumbar region; R62.7 Adult failure to thrive; E86.0 Dehydration; R41.82 Altered mental status, unspecified; I10 Essential (primary) hypertension; R63.4 Abnormal weight loss; F33.9 Major depressive disorder, recurrent, unspecified; M81.0 Age-related osteoporosis without current pathological fracture; W18.30XA Fall on same level, unspecified, initial encounter; Z68.1 Body mass index [BMI] 19.9 or less, adult; Z91.81 History of falling; Z91.199 Patient's noncompliance with other medical treatment and regimen due to unspecified reason; Z20.822 Contact with and (suspected) exposure to COVID-19
CPT/HCPCS: 36415; 70551; 71045; 72148; 80048; 80076; 81001; 82306; 82550; 82607; 83735; 84100; 84443; 85025; 85610; 85730; 87086; 87088; 87811; 93005; 97116; 97161; 97530; J1170; J1650; J3475; U0003

== ENCOUNTER 2024-02-11 09:37 | Emergency (ER) | payer OTHER ==
--- OUTSIDE RECORDS SUMMARY | 2024-02-11 10:10 | XMS REPORT | Continuity of Care Document ---
Author Name Unknown Address [address] [facility] [address] [facility] Address [address] [facility] [address] [place] [address] Care Team Providers Care Kiosk Sales Representative Name Role Phone KERI CHUA Attending Clinician Unavailabl e Payers Payer Name Policy Type Policy Number Effective Date Expirati on Date Source [facility] (MEDICARE REPLACEMENT HMO) [id number] 2022 00:00:00 Encounters Start Date/Time End Date/Time Encounter Type Admission Type Attending Clinicians Care Facility Care Department Encounter ID Source 2023-09-12 16:31:00 2023-09-13 01:09:00 Emergency E KERI CHUA [facility] [id number] [facility] 2023-03-12 00:00:00 2023-03-12 00:00:00 Outpatient [facility] DMG [id number] [facility] 2023-03-12 00:00:00 2023-03-12 00:00:00 Outpatient DMG DMG [id number] [facility] 2022-04-19 00:00:00 2022-04-19 00:00:00 Outpatient DMG DMG [id number] [facility]
[2024-02-11 10:38] LABS: Absolute Eosinophils 0.2 K/uL (0-0.5); Absolute Lymphocytes (CBC) 1.5 K/uL (0.7-4.9); Absolute Monocytes 0.6 K/uL (0.1-1.3); Absolute Neutrophil 2.5 K/uL (1.8-8.0); Basophils % 0.7 % (0-1.3); Eosinophils % 4.4 % (0-4.4); Hematocrit 39.6 % (36.0-45.0); Hemoglobin 12.7 g/dL (12.0-15.0); Lymphocytes % 31.6 % (15.3-44.8); MCHC 32.1 g/dL (32.0-36.0); MCV 90.3 fL (80-100); MPV 8.2 fL (7.6-11.3); Monocytes % 11.8 % (3.3-12.3); Neutrophils % 51.5 % (41.7-73.7); Nucleated Red Blood Cells % 0.1 % (0-0); Platelets 195 thou/uL (152-406); RBC Red Blood Cell Count 4.39 M/uL (3.86-4.86); Red Cell Distribution Width 13.1 % (12.1-15.2)
--- NOTE | 2024-02-11 10:50 | RAD REPORT ---
EXAM DESCRIPTION: CT - Head Brain Wo Cont - 02/11/2024 10:37 am CLINICAL HISTORY: Dizziness COMPARISON: 2019. TECHNIQUE: Computed axial tomography of the head was obtained. IV contrast was not requested. All CT scans are performed using dose optimization technique as appropriate and may include automated exposure control or mA/KV adjustment according to patient size. FINDINGS: An intracranial bleed is not seen The ventricles are normal in caliber No extra-axial fluid collection is noted. Mild to moderate low-density areas within periventricular, deep and subcortical white matter likely r epresent ischemic changes secondary to small vessel disease. Fluid within the sinuses/ mastoids is not seen. IMPRESSION: No acute intracranial abnormality is seen If patient's symptoms persist MRI of the brain would be recommended
--- NOTE | 2024-02-11 10:57 | RAD REPORT ---
EXAM DESCRIPTION: [place] Angio02/11/2024 10:37 am CLINICAL HISTORY: Dizziness COMPARISON: None TECHNIQUE: 100 cc Isovue [address] angiogram of the neck was obtained. 3D MIPS reconstruction performed. All CT scans are performed using dose optimization technique as appropriate and may include automated exposure control or mA/KV adjustment according to patient size. FINDINGS: Visualized aortic arch and great vessels unremarkable Mild plaque within the common carotid, internal carotid and external carotid arteries bilaterally Vertebral arteries unremarkable No dissection is seen. No high-grade stenosis [place] crieria Mild stenosis 0 to 49 % Moderate stenosis 50-69% Severe stenosis 70-99% Bilateral thyroid nodules. Nonemergent thyroid ultrasound recommended IMPRESSION: No significant vascular abnormality is displayed
--- NOTE | 2024-02-11 10:57 | RAD REPORT ---
EXAM DESCRIPTION: CTHead angio02/11/2024 10:37 am CLINICAL HISTORY: Dizziness COMPARISON: none TECHNIQUE: 100 cc Isovue [address] angiogram of the head was obtained. 3D MIPS reconstruction performed. All CT scans are performed using dose optimization technique as appropriate and may include automated exposure control or mA/KV adjustment according to patient size. FINDINGS: The basilar, anterior cerebral, middle cerebral and posterior cerebral arteries do not dem onstrate a significant stenosis Mild calcified plaque distal internal carotid arteries An aneurysm is not seen No large vessel occlusion IMPRESSION: No significant vascular abnormality is displayed
--- NOTE | 2024-02-11 11:04 | RAD REPORT ---
EXAM DESCRIPTION: [place] Single View02/11/2024 10:45 am CLINICAL HISTORY: Dizziness and hypertension COMPARISON: 2022 FINDINGS: Chronic elevation left hemidiaphragm The lungs appear clear of acute infiltrate. The heart is normal size IMPRESSION: No acute abnormalities displayed
[2024-02-11 11:21] LABS: PT Prothrombin Time 11.6 SECONDS (9.4-12.5); PTT, Activated Partial Thromb 29.4 SECONDS (24.3-36.9); Protime INR 1.04
[2024-02-11 11:33] LABS: Anion Gap 8.8 mEq/L (5.0-15.0); Potassium 3.8 mEq/L (3.5-5.1); Troponin High Sensitivity 5.2 pg/mL (<58.9)
[2024-02-11] MEDS ORDERED: MECLIZINE HCL 12.5 MG TAB ONE (11:59)
--- NOTE | 2024-02-11 14:15 | RAD REPORT ---
EXAM DESCRIPTION: MRI - Brain Wo Cont - 02/11/2024 2:05 pm CLINICAL HISTORY: DIZZINESS Headache, drowsiness COMPARISON: Head angio dated 02/11/2024 TECHNIQUE: Multi-sequence, multiplanar MR imaging of the brain was performed without contrast. FINDINGS: No intracranial hemorrhage, hydrocephalus or extra-axial fluid collections.Moderate conflu ent T2/FLAIR hyperintensity in the periventricular and deep white matter is present compatible with c hronic microvascular ischemic changes. No edema or shift of midline structures. No findings to suspec t brain mass. DWI is negative for acute CVA. Midline structures are normally formed. Mastoid air cells and paranasal sinuses are clear. IMPRESSION: Negative for acute CVA or other acute intracranial process.
--- NOTE | 2024-02-11 15:00 | ER ---
Nurse's Notes [facility] Name: Patito Bell Age: 88 yrs Sex: Female : 1935 Arrival Date: 02/11/2024 Time: 09:37 Bed 8 Private MD: Diagnosis: Dizziness and giddiness;Muscle weakness (generalized) Presentation: 02/10 09:46 Chief complaint: Patient's son or daughter states: has been dizzy X 2 days, not acting iw like her normal self. Coronavirus screen: At this time, the client does not indicate any symptoms associated with coronavirus-19. Ebola Screen: No symptoms or risks identified at this time. Initial Sepsis Screen: Does the patient meet any 2 criteria? No. Patient's initial sepsis screen is negative. Does the patient have a suspected source of infection? No. Patient's initial sepsis screen is negative. Risk Assessment: Do you want to hurt yourself or someone else? Patient reports no desire to harm self or others. Onset of symptoms was February 09, 2024. 09:46 Method Of Arrival: Wheelchair iw 09:46 Acuity: GLENNA 3 iw Historical: - Allergies: 09:48 No Known Allergies; iw - Home Meds: 11:46 carvedilol 12.5 mg Oral tab 1 tab 2 times per day [Active]; citalopram 40 mg tab 1 tab kj2 once daily [Active]; gabapentin 100 mg Oral capsule [Active]; hydralazine 25 mg Oral tablet [Active]; indapamide 2.5 mg Oral tab 1 tab once daily [Active]; losartan 100 mg Oral tab 1 tab once daily [Active]; magnesium oxide 400 mg Oral tab daily [Active]; potassium chloride 10 mEq Oral TbER 1 tab once daily [Active]; simvastatin 40 mg Oral tab 1 tab once daily [Active]; tramadol 50 mg Oral tablet [Active]; - PMHx: 09:48 headache; Hyperlipidemia; Hypertension; RLE DVT; iw - PSHx: 09:48 section; iw - Immunization history:: Adult Immunizations up to date. - Infectious Disease History:: Denies. - Social history:: Smoking status: Patient denies any tobacco usage or history of. Screenin:46 [facility] ED Fall Risk Assessment (Adult) History of falling in the last 3 months, kj2 including since admission No falls in past 3 months (0 pts) Confusion or Disorientation No (0 pts) Intoxicated or Sedated No (0 pts) Impaired Gait Yes (1 pt) Mobility Assist Device Used No (0 pt) Altered Elimination No (0 pt) Score/Fall Risk Level 0 - 2 = Low Risk Maintained a safe environment, Educated pt \T\ family on fall prevention, incl call for assistance when getting out of bed, Hourly rounding (assess needs \T\ fall precautionary measures) done. Abuse screen: Denies threats or abuse. Denies injuries from another. Nutritional screening: No deficits noted. Tuberculosis screening: No symptoms or risk factors identified. 12:11 Dora Swallow Protocol Exclusion Criteria: Unable to remain alert for testing: No NPO kj2 for medical/surgical reason by provider order Head-of-bed restricted <30 degrees Tracheostomy tube present No No thin liquids due to preexisting dysphagia/baseline modified diet thickened liquids No Brief Cognitive Screen What is your name? Normal, Where are you right now? Normal, What year is it? Normal. 3 oz Water Swallow Challenge: Pt able to drink all water without stopping, coughing, choking or throat clearing: Yes Result: PASS. Assessment: 10:44 General: Appears in no apparent distress. Behavior is calm, cooperative. Pain: kj2 Complains of pain in neck Pain currently is 5 out of 10 on a pain scale. Neuro: Level of Consciousness is awake, alert, Oriented to person, place, situation. Cardiovascular: Patient's skin is warm and dry. Respiratory: Airway is patent Respiratory effort is unlabored. GI: No deficits noted. : No deficits noted. 11:18 Reassessment: Patient appears in no apparent distress at this time. Patient and/or kj2 family updated on plan of care and expected duration. Pain level reassessed. Patient is alert, oriented x 3, equal unlabored respirations, skin warm/dry/pink. 12:18 Reassessment: Patient appears in no apparent distress at this time. Patient and/or kj2 family updated on plan of care and expected duration. Pain level reassessed. Patient is alert, oriented x 3, equal unlabored respirations, skin warm/dry/pink. 13:05 Reassessment: Patient appears in no apparent distress at this time. Patient and/or kj2 family updated on plan of care and expected duration. Pain level reassessed. Patient is alert, oriented x 3, equal unlabored respirations, skin warm/dry/pink. Vital Signs: 09:46 BP 136 / 71; Pulse 63; Resp 16; Temp 98.3; Pulse Ox 99% on R/A; Weight 45.36 kg; Height iw 5 ft. 0 in. ; Pain 0/10; 10:45 BP 142 / 65; Pulse 61; Resp 18; Temp 98.2; Pulse Ox 95% on R/A; kj2 12:14 BP 129 / 67; Pulse 58; Resp 16; Temp 98.2; Pulse Ox 95% on R/A; kj2 13:05 BP 122 / 71; Pulse 64; Resp 18; Pulse Ox 99% on R/A; kj2 15:31 BP 132 / 63; Pulse 62; Resp 18; Temp 97.9; Pulse Ox 94% on R/A; kj2 09:46 Body Mass Index 19.53 (45.36 kg, 152.4 cm) iw 09:46 Pain Scale: Adult iw NIH Stroke Scale Scores: 11:55 NIHSS Score: 0 ms3 12:11 NIHSS Score: 0 kj2 ED Course: 09:38 Patient arrived in ED. mr 09:48 Triage completed. iw 09:48 Arm band placed on. iw 09:54 Rohit Venegas DO is Attending Physician. ms3 10:39 CT Neck Angio In Process Unspecified. EDMS 10:39 CT Head Brain wo Cont In Process Unspecified. EDMS 10:39 Head angio In Process Unspecified. EDMS 10:42 Charu Dick, RN is Primary Nurse. kj2 10:46 Inserted saline lock: 22 gauge in left antecubital area, using aseptic technique. Blood kj2 collected. Flushed with 10 mL NS. 10:47 CXR XRAY In Process Unspecified. EDMS 10:49 Patient has correct armband on for positive identification. Bed in low position. Call kj2 light in reach. Provided Education on: call light, fall precautions. 14:07 Brain Wo Cont In Process Unspecified. EDMS 14:56 Anders Bob DO is Referral Physician. ms3 15:19 No provider procedures requiring assistance completed. IV discontinued, intact, kj2 bleeding controlled, No redness/swelling at site. Pressure dressing applied. Administered Medications: 12:02 Drug: Meclizine PO 50 mg PO once Route: PO; me1 12:31 Follow up: Response: No adverse reaction kj2 Medication: 10:49 VIS not applicable for this client. kj2 Outcome: 14:59 Discharge ordered by . ms3 15:19 Discharged to home via wheelchair, with family, kj2 15:19 Condition: stable 15:19 Discharge instructions given to patient, family, Instructed on discharge instructions, follow up and referral plans. medication usage, Demonstrated understanding of instructions, follow-up care, medications, Prescriptions given X 1, 15:32 Patient left the ED. kj2 NIH Stroke Scale - NIH Stroke Score Date: 02/11/2024 Time: 11:55 Total Score = 0 10. Dysarthria (speech clarity - read or repeat words) - 0(Normal) 11. Extinction and Inattention (visual/tactile/auditory/spatial/personal) - 0(No abnormality) 1a. Level of Consciousness (LOC) - 0(Alert) 1b. Level of Consciousness (LOC) (Month \T\ Age) - 0(Both) 1c. LOC Commands (Open \T\ Closes Eyes/Knocker Out) - 0(Both) 2. Best Gaze (Lateral Gaze Paresis) - 0(Normal) 3. Visual Field Loss - 0(No visual loss) 4. Facial Palsy - 0(Normal) 5a. Left Arm: Motor (10-second hold) - 0(No drift) 5b. Right Arm: Motor (10-second hold) - 0(No drift) 6a. Left Leg: Motor (5-second hold - always test supine) - 0(No drift) 6b. Right Leg: Motor (5-second hold - always test supine) - 0(No drift) 7. Limb Ataxia (finger/nose \T\ heel/ronquillo - test with eyes open) - 0(Absent) 8. Sensory Loss (pinprick arms/legs/face) - 0(Normal) 9. Best Language: Aphasia (description/naming/reading) - 0(No aphasia) Initials: ms3 NIH Stroke Scale - NIH Stroke Score Date: 02/11/2024 Time: 12:11 Total Score = 0 10. Dysarthria (speech clarity - read or repeat words) - 0(Normal) 11. Extinction and Inattention (visual/tactile/auditory/spatial/personal) - 0(No abnormality) 1a. Level of Consciousness (LOC) - 0(Alert) 1b. Level of Consciousness (LOC) (Month \T\ Age) - 0(Both) 1c. LOC Commands (Open \T\ Closes Eyes/Knocker Out) - 0(Both) 2. Best Gaze (Lateral Gaze Paresis) - 0(Normal) 3. Visual Field Loss - 0(No visual loss) 4. Facial Palsy - 0(Normal) 5a. Left Arm: Motor (10-second hold) - 0(No drift) 5b. Right Arm: Motor (10-second hold) - 0(No drift) 6a. Left Leg: Motor (5-second hold - always test supine) - 0(No drift) 6b. Right Leg: Motor (5-second hold - always test supine) - 0(No drift) 7. Limb Ataxia (finger/nose \T\ heel/ronquillo - test with eyes open) - 0(Absent) 8. Sensory Loss (pinprick arms/legs/face) - 0(Normal) 9. Best Language: Aphasia (description/naming/reading) - 0(No aphasia) Initials: kj2 Signatures: Dispatcher [employer] EDMS Muriel Mitchell, Reg Reg mr Ludmila Solares, RN RN iw Rohit Venegas, DO DO ms3 Radha Clark, RN RN me1 Charu Dick, RN RN kj2
--- NOTE | 2024-02-11 15:00 | EDPHYS ---
Physician Documentation [facility] Name: Patito Bell Age: 88 yrs Sex: Female : 1935 Arrival Date: 02/11/2024 Time: 09:37 Bed 8 Private MD: ED Physician Rohit Venegas HPI: 02/10 11:53 This 88 yrs old Black Female presents to ER via Wheelchair with complaints of Dizziness.ms3 11:53 88-year-old female with past medical history of headache, hyperlipidemia, hypertension, ms3 DVT presents to the emergency department for shaking and dizziness that began yesterday. Patient denies chest pain, shortness of breath, nausea, vomiting. She denies any alleviating or inciting factors.. Historical: - Allergies: 09:48 No Known Allergies; iw - Home Meds: 11:46 carvedilol 12.5 mg Oral tab 1 tab 2 times per day [Active]; citalopram 40 mg tab 1 tab kj2 once daily [Active]; gabapentin 100 mg Oral capsule [Active]; hydralazine 25 mg Oral tablet [Active]; indapamide 2.5 mg Oral tab 1 tab once daily [Active]; losartan 100 mg Oral tab 1 tab once daily [Active]; magnesium oxide 400 mg Oral tab daily [Active]; potassium chloride 10 mEq Oral TbER 1 tab once daily [Active]; simvastatin 40 mg Oral tab 1 tab once daily [Active]; tramadol 50 mg Oral tablet [Active]; - PMHx: 09:48 headache; Hyperlipidemia; Hypertension; RLE DVT; iw - PSHx: 09:48 section; iw - Immunization history:: Adult Immunizations up to date. - Infectious Disease History:: Denies. - Social history:: Smoking status: Patient denies any tobacco usage or history of. ROS: 11:53 Constitutional: Negative for fever, and chills. Cardiovascular: Negative for chest ms3 pain, and palpitations. Respiratory: Negative for shortness of breath, cough, wheezing, and pleuritic chest pain, Abdomen/GI: Negative for abdominal pain, nausea, vomiting, diarrhea, and constipation, 11:53 Neuro: Positive for dizziness, tremor, Exam: 11:53 Constitutional: This is a well developed, well nourished patient who is awake, alert, ms3 and in no acute distress. Chest/axilla: Normal chest wall appearance and motion. Nontender with no deformity. Cardiovascular: Regular rate and rhythm with a normal S1 and S2. No gallops, murmurs, or rubs. Normal PMI, no JVD. No pulse deficits. Respiratory: Lungs have equal breath sounds bilaterally, clear to auscultation and percussion. No rales, rhonchi or wheezes noted. No increased work of breathing, no retractions or nasal flaring. Abdomen/GI: Soft, non-tender, with normal bowel sounds. No distension or tympany. No guarding or rebound. No evidence of tenderness throughout. Skin: Warm, dry with normal turgor. Normal color with no rashes, no lesions, and no evidence of cellulitis. 11:53 Neuro: Orientation: is normal, Mentation: is normal, Cranial nerves: CN I not tested, CN II- XII are normal as tested, Cerebellar function: normal finger to nose testing, Motor: is normal, Sensation: is normal, 11:54 ECG was reviewed by the Attending Physician. ms3 Vital Signs: 09:46 BP 136 / 71; Pulse 63; Resp 16; Temp 98.3; Pulse Ox 99% on R/A; Weight 45.36 kg; Height iw 5 ft. 0 in. ; Pain 0/10; 10:45 BP 142 / 65; Pulse 61; Resp 18; Temp 98.2; Pulse Ox 95% on R/A; kj2 12:14 BP 129 / 67; Pulse 58; Resp 16; Temp 98.2; Pulse Ox 95% on R/A; kj2 13:05 BP 122 / 71; Pulse 64; Resp 18; Pulse Ox 99% on R/A; kj2 15:31 BP 132 / 63; Pulse 62; Resp 18; Temp 97.9; Pulse Ox 94% on R/A; kj2 09:46 Body Mass Index 19.53 (45.36 kg, 152.4 cm) iw 09:46 Pain Scale: Adult iw NIH Stroke Scale Scores: 11:55 NIHSS Score: 0 ms3 12:11 NIHSS Score: 0 kj2 MDM: 10:14 Patient medically screened. ms3 11:53 Differential diagnosis: cardiac arrhythmia, CVA, hypovolemia, idiopathic dizziness, ms3 near-syncope, TIA. 19:13 Data reviewed: vital signs, nurses notes, lab test result(s), EKG, radiologic studies, ms3 CT scan, MRI, plain films, and as a result, I will discharge patient. Consideration of Admission/Observation Escalation of care including admission/observation considered. MRI negative and patient's symptoms improved while in the emergency. I considered the following discharge prescriptions or medication management in the emergency department Medications were administered in the Emergency Department. See MAR. Independent interpretation of the following test(s) in the Emergency Department EKG: See my EKG interpretation above CT Scan: My interpretation is CT head without IV contrast images reviewed by me do not reveal intracranial hemorrhage. Counseling: I had a detailed discussion with the patient and/or guardian regarding the historical points, exam findings, and any diagnostic results supporting the discharge/admit diagnosis, lab results, radiology results, the need for outpatient follow up, to return to the emergency department if symptoms worsen or persist or if there are any questions or concerns that arise at home. Special discussion: I discussed with the patient/guardian in detail that at this point there is no indication for admission to the hospital. It is understood, however, that if the symptoms persist or worsen the patient needs to return immediately for re-evaluation. ED course: Discussed labs and imaging with patient. Patient to follow-up with her primary care physician in 2 to 3 days. Patient understands and agrees with plan. All questions were answered. Return precautions discussed include worsening symptoms, or any other concerns. On reevaluation patient states symptoms improved, patient is alert and oriented, in no apparent distress, nontoxic-appearing, speaking full sentences. 02/10 10:13 Order name: Basic Metabolic Panel; Complete Time: 11:48 ms3 02/10 10:13 Order name: CBC with Diff; Complete Time: 11:48 ms3 02/10 10:13 Order name: High Sensitivity Troponin; Complete Time: 11:48 ms3 02/10 10:13 Order name: Protime (+inr); Complete Time: 11:48 ms3 02/10 10:13 Order name: Ptt, Activated; Complete Time: 11:48 ms3 02/10 10:53 Order name: CREATININE WHOLE BLOOD; Complete Time: 11:48 EDMS 02/10 10:13 Order name: CT Neck Angio ms02/10 10:13 Order name: CT Head Brain wo Cont ms02/10 10:14 Order name: CXR XRAY ms3 02/10 10:33 Order name: Head angio EDMS 02/10 13:49 Order name: Brain Wo Cont EDMS 02/10 10:13 Order name: EKG; Complete Time: 10:14 ms3 02/10 10:13 Order name: Accucheck; Complete Time: 12:28 ms3 02/10 10:13 Order name: Cardiac monitoring; Complete Time: 11:17 ms3 02/10 10:13 Order name: EKG - Nurse/Tech; Complete Time: 11:17 ms3 02/10 10:13 Order name: IV Saline Lock; Complete Time: 11:17 ms3 02/10 10:13 Order name: Labs collected and sent; Complete Time: 11:17 ms3 02/10 10:13 Order name: NPO; Complete Time: 11:17 ms3 02/10 10:13 Order name: O2 Per Protocol; Complete Time: 11:17 ms3 02/10 10:13 Order name: O2 Sat Monitoring; Complete Time: 11:43 ms3 02/10 10:13 Order name: Stroke Swallow Screen; Complete Time: 12:27 ms3 02/10 10:41 Order name: Labs - recollect needed: recollect green and blue top; Complete Time: 11:17 bd EC:54 Rate is 61 beats/min. Rhythm is regular. QRS [place] is Normal. [place] interval is normal. QRS ms3 interval is normal. Clinical impression: NSR w/ Non-specific ST/T Changes. Interpreted by me. Reviewed by me. Administered Medications: 12:02 Drug: Meclizine PO 50 mg PO once Route: PO; me1 12:31 Follow up: Response: No adverse reaction kj2 Disposition Summary: 02/11/24 14:59 Discharge Ordered Notes: Location: Home ms3 Condition: Stable ms3 Diagnosis - Dizziness and giddiness ms3 - Muscle weakness (generalized) ms3 Followup: ms3 - With: Anders Bob, DO - When: 2 - 3 days - Reason: Recheck today's complaints Discharge Instructions: - Discharge Summary Sheet ms3 - Dizziness ms3 Forms: - Medication Reconciliation Form ms3 - Antibiotic Education ms3 - Prescription Opioid Use ms3 - Patient Portal Instructions ms3 - Leadership Thank You Letter ms3 Prescriptions: - Meclizine 25 mg Oral Tablet - take 1 tablet ORAL route every 8 hours As needed; 30 tablet; Refills: 0, ms3 Product Selection Permitted NIH Stroke Scale - NIH Stroke Score Date: 02/11/2024 Time: 11:55 Total Score = 0 10. Dysarthria (speech clarity - read or repeat words) - 0(Normal) 11. Extinction and Inattention (visual/tactile/auditory/spatial/personal) - 0(No abnormality) 1a. Level of Consciousness (LOC) - 0(Alert) 1b. Level of Consciousness (LOC) (Month \T\ Age) - 0(Both) 1c. LOC Commands (Open \T\ Closes Eyes/Slubber Machine Operator) - 0(Both) 2. Best Gaze (Lateral Gaze Paresis) - 0(Normal) 3. Visual Field Loss - 0(No visual loss) 4. Facial Palsy - 0(Normal) 5a. Left Arm: Motor (10-second hold) - 0(No drift) 5b. Right Arm: Motor (10-second hold) - 0(No drift) 6a. Left Leg: Motor (5-second hold - always test supine) - 0(No drift) 6b. Right Leg: Motor (5-second hold - always test supine) - 0(No drift) 7. Limb Ataxia (finger/nose \T\ heel/ronquillo - test with eyes open) - 0(Absent) 8. Sensory Loss (pinprick arms/legs/face) - 0(Normal) 9. Best Language: Aphasia (description/naming/reading) - 0(No aphasia) Initials: ms3 NIH Stroke Scale - NIH Stroke Score Date: 02/11/2024 Time: 12:11 Total Score = 0 10. Dysarthria (speech clarity - read or repeat words) - 0(Normal) 11. Extinction and Inattention (visual/tactile/auditory/spatial/personal) - 0(No abnormality) 1a. Level of Consciousness (LOC) - 0(Alert) 1b. Level of Consciousness (LOC) (Month \T\ Age) - 0(Both) 1c. LOC Commands (Open \T\ Closes Eyes/Slubber Machine Operator) - 0(Both) 2. Best Gaze (Lateral Gaze Paresis) - 0(Normal) 3. Visual Field Loss - 0(No visual loss) 4. Facial Palsy - 0(Normal) 5a. Left Arm: Motor (10-second hold) - 0(No drift) 5b. Right Arm: Motor (10-second hold) - 0(No drift) 6a. Left Leg: Motor (5-second hold - always test supine) - 0(No drift) 6b. Right Leg: Motor (5-second hold - always test supine) - 0(No drift) 7. Limb Ataxia (finger/nose \T\ heel/ronquillo - test with eyes open) - 0(Absent) 8. Sensory Loss (pinprick arms/legs/face) - 0(Normal) 9. Best Language: Aphasia (description/naming/reading) - 0(No aphasia) Initials: kj2 Signatures: Dispatcher [employer] EDMS Fanta Mcnamara Irene, RN RN iw Rohit Venegas DO DO ms3 Radha Clark, RN RN me1 Charu Dick, RN RN kj2 Corrections: (The following items were deleted from the chart) 10:14 10:14 Head Brain Wo Cont+CT.RAD.BRZ ordered. EDMS EDMS 13:49 11:52 MR STROKE PROTOCOL+MRI.RAD.BRZ ordered. EDMS EDMS
[2024-02-11 15:49] VITALS: BP 132/63; TEMP 97.9; O2SAT 94
== END 2024-02-11 15:32 | disposition home or self-care (01) ==
LOC: ER 09:37
DX: R42 Dizziness and giddiness (principal); M62.81 Muscle weakness (generalized); I10 Essential (primary) hypertension; E78.5 Hyperlipidemia, unspecified; Z86.718 Personal history of other venous thrombosis and embolism
CPT/HCPCS: 85025; 80048; 36415; 85610; 82565; 85730; 84484; 70450; 70496; 70498; 71045; 70551; Q9967; J8597